=== PATIENT | female | born 1975 ===

== ENCOUNTER 2017-05-17 20:26 | Inpatient (IN) | payer OTHER ==
[2017-05-17] MEDS ORDERED: Sodium Chloride 0.9% 1,000 ML IV ONE (20:56)
[2017-05-17 21:33] LABS: BASO % 0.4 % (0.0-2.0); EOS # 0.1 K/uL (0.0-0.7); HEMATOCRIT 36.4 % (34.0-47.0); LYMPH # 2.2 K/uL (1.0-4.3); LYMPH % 31.7 % (20.0-40.0); MEAN CELL VOLUME 85.6 fL (81.0-99.0); MEAN CORPUSCULAR HEMOGLOBIN 27.5 pg (27.0-31.0); MEAN CORPUSCULAR HGB CONC 32.1 g/dL (33.0-37.0); MEAN PLATELET VOLUME 8.7 fL (7.2-11.7); MONO # 0.7 K/uL (0.0-0.8); RED CELL DISTRIBUTION WIDTH 15.8 % (11.5-14.5)
[2017-05-17 21:42] LABS: CHLORIDE 106 mmol/L (98-107); RBC URINE 169 /hpf (0-3); SODIUM 141 mmol/L (132-148); URINE BACTERIA RARE (<OCC); URINE BILIRUBIN NEGATIVE (NEGATIVE); URINE BLOOD 3+ (NEGATIVE); URINE COLOR Amber (YELLOW); URINE GLUCOSE (UA) NORMAL (Normal); URINE KETONE NEGATIVE (NEGATIVE); URINE LEUKOCYTE ESTERASE 3+ Leu/uL (Negative); URINE PROTEIN 2+ mg/dL (NEGATIVE); WBC URINE 104 /hpf (0-5)
[2017-05-17 21:44] LABS: GFR AFRICAN-AMERICAN > 60
[2017-05-17 21:45] LABS: ALB/GLOB RATIO 0.7 (1.0-2.1); ALKALINE PHOSPHATASE 75 U/L (38-126); ALT/SGPT 79 U/L (9-52); AST/SGOT 106 U/L (14-36); BILIRUBIN,TOTAL 0.5 mg/dL (0.2-1.3); BLOOD UREA NITROGEN 18 mg/dL (7-17); CALCIUM 8.6 mg/dl (8.6-10.4); CARBON DIOXIDE 23 mmol/L (22-30); GLUCOSE,RANDOM 88 mg/dL (65-105); TOTAL PROTEIN 7.4 g/dL (6.3-8.3)
[2017-05-17] MEDS ORDERED: Sodium Chloride 0.9% 1,000 ML ONE (21:58)
[2017-05-17] MEDS ORDERED: Morphine 4 MG/ML VIAL ONE (21:58)
[2017-05-17] MEDS ORDERED: DiphenhydrAMINE 50 mg/ml Inj IVP STA (21:59)
[2017-05-17] MEDS ORDERED: DiphenhydrAMINE 50 mg/ml Inj ONE (22:01)
[2017-05-17] MEDS ORDERED: Ciprofloxacin 400mg/200ml D5W 400 MG/200 ML BAG IVPB STA (22:20)
[2017-05-17] MEDS ORDERED: Magnesium Hydroxide Susp 30 ml UD PO PRN (22:45)
--- NOTE | 2017-05-17 23:04 | C.PDOC ---
History Of Present Illness Pt has a suprapubic catheter. Pt c/o pain/irritation and foul smelling urine and discharge from around the catheter site. Time Seen by Provider: 05/17/17 20:47 Chief Complaint (Nursing): Female Genitourinary History Per: Patient Onset/Duration Of Symptoms: Days (few) Current Symptoms Are (Timing): Worse Severity: Moderate Quality Of Discomfort: "Pain" Associated Symptoms: Urinary Symptoms Alleviating Factors: None Additional History Per: Prior Records Past Medical History Reviewed: Historical Data, Nursing Documentation, Vital Signs Vital Signs: Last Vital Signs Temp 98.7 F 05/17/17 20:35 Pulse 82 05/17/17 20:35 Resp 16 05/17/17 20:35 BP 117/79 05/17/17 22:00 Pulse Ox 98 05/17/17 20:35 - Medical History PMH: Depression Other PMH: 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 Surgical History: Back Surgery Other Surgeries: Suprapubic catheter Family History: States: Unknown Family Hx - Social History Hx Alcohol Use: No Hx Substance Use: No - Immunization History Hx Tetanus Toxoid Vaccination: No Hx Influenza Vaccination: No Hx Pneumococcal Vaccination: No Review Of Systems Except As Marked, All Systems Reviewed And Found Negative. Constitutional: Negative for: Weakness Cardiovascular: Negative for: Chest Pain Respiratory: Negative for: Shortness of Breath Gastrointestinal: Negative for: Vomiting Musculoskeletal: Negative for: Neck Pain, Back Pain Skin: Positive for: Rash Physical Exam - Physical Exam Appears: No Acute Distress, Chronically Ill Skin: Warm, Dry Head: Atraumatic, Normacephalic Eye(s): bilateral: PERRL, EOMI Neck: Normal ROM, Supple Cardiovascular: Rhythm Regular Respiratory: Normal Breath Sounds, No Accessory Muscle Use Gastrointestinal/Abdominal: Soft, Other (suprapubic catheter in place but with surrounding erythema) Back: No CVA Tenderness Extremity: Normal ROM Neurological/Psych: Oriented x3, No Normal Motor (b/l LE weakness (baseline)) ED Course And Treatment - Laboratory Results Result Diagrams: 05/17/17 21:29 05/17/17 21:29 Lab Interpretation: Abnormal Interpretation Of Abnormal: UTI Urine POC: Negative O2 Sat by Pulse Oximetry: 98 Pulse Ox Interpretation: Normal - Physician Consult Information Physician Contacted: Sang Molina (Urology) Outcome Of Conversation: He will change the suprapubic catheter in the hospital. Progress - Interventions Interventions:: Observation, Intravenous fluid - Medications Administered Intravenous: Antihistamine (H-1), Opiate, Other (Abx) - Data Reviewed Data Reviewed: Lab, Old records - Patient Status Patient status: Partially improved - Continuity of Care Discussed patient case with:: Patient, ED Nurse, On-call PMD-pt unassigned Discussed pt. case with technical sales consultant/specialty: Urology - Patient Plan Patient Plan: Admission Disposition Discussed With : Senait Carreno Comment: He accepted pt on his service and gave admitting orders to the nurse. Doctor Will See Patient In The: Hospital Counseled Patient/Family Regarding: Studies Performed, Diagnosis - Disposition Disposition: HOSPITALIZED Disposition Time: 23:00 Condition: FAIR - Clinical Impression Clinical Impression: Complicated urinary tract infection, Chronic suprapubic catheter
[2017-05-17] MEDS ORDERED: Ciprofloxacin 400mg/200ml D5W 400 MG/200 ML BAG IVPB ONE (23:22)
[2017-05-18] MEDS: TIZANIDINE HCL 2 MG PO SCH ×3 (06:02→23:17)
[2017-05-18] MEDS: oxyCODONE 20 mg ER Tab (oxyCONTIN) PO SCH ×3 (06:17→23:21)
[2017-05-18 08:07] LABS: BASO % 0.4 % (0.0-2.0); EOS # 0.1 K/uL (0.0-0.7); EOS % 2.6 % (0.0-4.0); HEMATOCRIT 33.1 % (34.0-47.0); LYMPH # 1.6 K/uL (1.0-4.3); LYMPH % 34.8 % (20.0-40.0); MEAN CELL VOLUME 85.6 fL (81.0-99.0); MEAN CORPUSCULAR HEMOGLOBIN 27.2 pg (27.0-31.0); MEAN CORPUSCULAR HGB CONC 31.8 g/dL (33.0-37.0); MONO # 0.5 K/uL (0.0-0.8); MONO % 10.6 % (0.0-10.0); NRBC % 0.1 % (0.0-2.0); RED CELL DISTRIBUTION WIDTH 16.1 % (11.5-14.5); WHITE BLOOD COUNT 4.7 K/uL (4.8-10.8)
[2017-05-18 09:14] LABS: CHLORIDE 108 mmol/L (98-107); POTASSIUM 3.7 mmol/L (3.6-5.2); SODIUM 140 mmol/L (132-148)
[2017-05-18 09:16] LABS: BILIRUBIN,TOTAL 0.5 mg/dL (0.2-1.3); GFR AFRICAN-AMERICAN > 60
[2017-05-18 09:17] LABS: ALB/GLOB RATIO 0.7 (1.0-2.1); ALKALINE PHOSPHATASE 72 U/L (38-126); ALT/SGPT 77 U/L (9-52); AST/SGOT 111 U/L (14-36); BLOOD UREA NITROGEN 17 mg/dL (7-17); CARBON DIOXIDE 21 mmol/L (22-30); GLUCOSE,RANDOM 115 mg/dL (65-105); TOTAL PROTEIN 6.9 g/dL (6.3-8.3)
[2017-05-18 09:18] LABS: CALCIUM 8.3 mg/dl (8.6-10.4)
[2017-05-18] MEDS: Morphine 15 mg Immediate Release Tab PO PRN ×2 (09:34→15:54)
[2017-05-18] MEDS: Multiple Vitamins Tab PO SCH (09:38)
[2017-05-18] MEDS: Cefepime IV 1 gm in Dextrose 1 GM/50 ML BAG IVPB SCH ×2 (09:39→22:59)
[2017-05-18] MEDS ORDERED: Venlafaxine 75 mg ER Cap PO SCH (10:00)
[2017-05-18] MEDS ORDERED: Levothyroxine 150 MCG TAB PO SCH (10:00)
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
--- NOTE | 2017-05-18 15:40 | CP.PCM.CON ---
History of Present Illness - History of Present Illness History of Present Illness: INFECTIOUS DISEASE CONSULTATION .HPI; 41-YEAR-OLD FEMALE WITH NO SIGNIFICANT PAST MEDICAL HISTORY EXCEPT FOR DEPRESSION AND HISTORY OF BACK SURGERY AND LOWER EXTREMITY PARALYSIS SECONDARY TO CHRONIC OSTEOMYELITIS OF THE SPINE. PATIENT HAS A SUPRAPUBIC CATHETER WHICH REQUIRES CHANGING EVERY MONTH PER PATIENT. PATIENT ADMITS THAT IT WAS LAST CHANGED 2 MONTHS AGO AND SHE IS OVERDUE. NOW COMPLAINS OF EXCRUCIATING PAIN, IRRITATION AND FOUL-SMELLING URINE AND DISCHARGE FROM AROUND THE CATHETER SITE. INFECTIOUS DISEASE CONSULTATION REQUESTED BY PMD,FOR COMPLICATED UTI AND CHANGE OF SUPRAPUBIC CATHETER. NOTED PATIENT IS ON POLYPHARMACY FOR OPIOIDS AND ANALGESICS. PATIENT COMPLAINS OF CHILLS BUT DENIES ANY FEVER. uRINALYSIS ON ADMISSION IS HAZY WITH 3+ URINARY LEUKOCYTES AND 104 WBC'S AND MICROSCOPIC HEMATURIA. pATIENT WAS PLACED ON iv CEFEPIME 1 G EVERY 12 HOURLY AND WAS GIVEN A DOSE OF iv GENTAMICIN 160 MG ORDERED BY ME. pATIENT AWAITING CHANGE OF CATHETER AND URINE CULTURES TO ADJUST ANTIBIOTICS. ALLERGY; PENICILLIN BUT HAS TOLERATED CEFEPIME FOR 2 DAYS WITHOUT ANY RASH. 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 Surgical History: Back Surgery Other Surgeries: Suprapubic catheter Family History: States: Unknown Family Hx - Social History Hx Alcohol Use: No Hx Substance Use: No - Immunization History Hx Tetanus Toxoid Vaccination: No Hx Influenza Vaccination: No Hx Pneumococcal Vaccination: No Review of Systems - Constitutional Constitutional: Chills. absent: Fever - EENT Eyes: absent: Change in Vision Nose/Mouth/Throat: absent: Mouth Lesions, Sore Throat - Cardiovascular Cardiovascular: Chest Pain. absent: Dyspnea - Respiratory Respiratory: absent: Cough - Gastrointestinal Gastrointestinal: Abdominal Pain. absent: Diarrhea, Nausea, Vomiting - Genitourinary Genitourinary: Flank Pain, Hematuria (MICROSCOPIC HEMATURIA), Freq UTI, Hx / Renal Surgery (HISTORY OF SUPRAPUBIC CATHETER WITH CHANGING EVERY MONTHLY,LAST CHANGED 2 MONTHS AGO.) - Psychiatric Psychiatric: Anxiety, Depression, Mood Swings - Hematologic/Lymphatic Hematologic: As Per HPI. absent: Lymphadenopathy Past Patient History - Infectious Disease Hx of Infectious Diseases: None - Past Medical History & Family History Past Medical History?: Yes - Past Social History Smoking Status: Former Smoker - CARDIAC Hx Cardiac Disorders: No - PULMONARY Hx Respiratory Disorders: No - NEUROLOGICAL Hx Neurological Disorder: No - HEENT Hx HEENT Problems: No - RENAL Hx Chronic Kidney Disease: No - ENDOCRINE/METABOLIC Hx Endocrine Disorders: No - HEMATOLOGICAL/ONCOLOGICAL Hx Blood Disorders: No - INTEGUMENTARY Hx Dermatological Problems: No - MUSCULOSKELETAL/RHEUMATOLOGICAL Hx Musculoskeletal Disorders: Yes Hx Back Pain: Yes Hx Falls: No Other/Comment: PARAPLEGIA. - GASTROINTESTINAL Hx Gastrointestinal Disorders: No - GENITOURINARY/GYNECOLOGICAL Hx Genitourinary Disorders: Yes Other/Comment: SUPRAPUBIC CATHETER - PSYCHIATRIC Hx Psychophysiologic Disorder: Yes Hx Depression: Yes Hx Substance Use: No - SURGICAL HISTORY Hx Surgeries: Yes Hx Section: Yes Other/Comment: CYST REMOVAL NECK, HAND AND ABDOMIN. - ANESTHESIA Hx Anesthesia: Yes Hx Anesthesia Reactions: No Hx Malignant Hyperthermia: No Has any member of the family had a problem w/ anesthesia?: No Meds Allergies/Adverse Reactions: Allergies Allergy/AdvReac Type Severity Reaction Status Date / Time divalproex sodium Allergy SWELLING Verified 05/17/17 20:47 [From Depakote] Penicillins Allergy RASH Verified 05/17/17 20:47 tramadol Allergy RASH Verified 05/17/17 20:47 - Medications Medications: Current Medications Acetaminophen (Tylenol 325mg Tab) 325 mg PO DAILY [facility] Last Admin: 05/18/17 09:40 Dose: 325 mg Ascorbic Acid (Vitamin C 500 Mg Tab) 500 mg PO DAILY [facility] Last Admin: 05/18/17 14:54 Dose: 500 mg Baclofen (Lioresal) 10 mg PO TID [facility] Last Admin: 05/18/17 13:40 Dose: 10 mg Docusate Sodium (Colace) 200 mg PO HS [facility] Famotidine (Pepcid) 20 mg PO DAILY [facility] Last Admin: 05/18/17 09:39 Dose: 20 mg Fentanyl (Duragesic) 1 patch TD Q72 [facility] Gabapentin (Neurontin) 400 mg PO QID [facility] Last Admin: 05/18/17 13:39 Dose: 400 mg Home Med (Tizanidine Hcl [Zanaflex]) 2 mg PO Q8 [facility] Last Admin: 05/18/17 14:55 Dose: Not Given Cefepime HCl (Maxipime Iv 1 Gm Premix) 1 gm in 50 mls @ 100 mls/hr IVPB Q12H [facility] Last Admin: 05/18/17 09:39 Dose: 100 mls/hr Gentamicin Sulfate 160 mg/ (Sodium Chloride) 104 mls @ 100 mls/hr IVPB ONCE ONE Stop: 05/18/17 18:02 Lactulose (Enulose) 20 gm PO TID [facility] Last Admin: 05/18/17 13:39 Dose: Not Given Levothyroxine Sodium (Synthroid) 150 mcg PO DAILY@0630 [facility] Magnesium Hydroxide (Milk Of Magnesia) 30 ml PO DAILY PRN PRN Reason: Constipation Morphine Sulfate (Morphine Immediate Release Tab) 30 mg PO Q4 PRN PRN Reason: Pain, moderate (4-7) Last Admin: 05/18/17 09:34 Dose: 30 mg Multivitamins (Hexavitamin) 1 tab PO DAILY [facility] Last Admin: 05/18/17 09:38 Dose: 1 tab Oxybutynin Chloride (Ditropan Tab) 5 mg PO TID [facility] Last Admin: 05/18/17 13:39 Dose: 5 mg Oxycodone HCl (Oxycontin Extended Release Tab) 20 mg PO Q8 [facility] Last Admin: 05/18/17 13:40 Dose: 20 mg Pneumococcal Polyvalent Vaccine (Pneumovax 23 Vaccine) 0.5 ml IM .ONCE ONE Stop: 05/20/17 10:01 Pregabalin (Lyrica) 50 mg PO Q12 [facility] Last Admin: 05/18/17 09:38 Dose: 50 mg Rivaroxaban (Xarelto) 10 mg PO DAILY [facility] Last Admin: 05/18/17 09:40 Dose: 10 mg Topiramate (Topamax) 25 mg PO DAILY [facility] Last Admin: 05/18/17 14:54 Dose: 25 mg Venlafaxine HCl (Effexor Xr) 300 mg PO DAILY [facility] Last Admin: 05/18/17 09:38 Dose: 300 mg Zolpidem Tartrate (Ambien) 5 mg PO HS [facility] Physical Exam - Constitutional Appears: No Acute Distress - Head Exam Head Exam: NORMAL INSPECTION - Eye Exam Eye Exam: EOMI, PERRL. absent: Scleral icterus - ENT Exam ENT Exam: Normal Oropharynx - Neck Exam Neck exam: Positive for: Normal Inspection - Respiratory Exam Respiratory Exam: Clear to Auscultation Bilateral - Cardiovascular Exam Cardiovascular Exam: REGULAR RHYTHM, +S1, +S2 - GI/Abdominal Exam GI & Abdominal Exam: Normal Bowel Sounds, Soft, Tenderness (SUPRAPUBIC AND AROUND THE CATHETER SITE.). absent: Guarding - Extremities Exam Extremities exam: Positive for: pedal pulses present. Negative for: calf tenderness - Neurological Exam Neurological exam: Alert, CN II-XII Intact (PARALYSIS BOTH LOWER EXTREMITIES POST OSTEOMYELITIS SPINE AND BACK SURGERY.), Oriented x3 - Psychiatric Exam Psychiatric exam: Anxious, Depressed - Skin Skin Exam: Normal Color, Warm Results - Vital Signs Recent Vital Signs: Last Vital Signs Temp 98.2 F 05/18/17 08:32 Pulse 69 05/18/17 08:32 Resp 20 05/18/17 08:32 BP 119/85 05/18/17 08:32 Pulse Ox 99 05/18/17 08:32 - Labs Result Diagrams: 05/19/17 07:12 05/19/17 07:12 Labs: Laboratory Results - last 24 hr 05/18/17 05/18/17 07:55 07:55 WBC 4.7 L RBC 3.87 Hgb 10.5 L Hct 33.1 L MCV 85.6 MCH 27.2 MCHC 31.8 L RDW 16.1 H Plt Count 130 MPV 9.0 Neut % (Auto) 51.6 Lymph % (Auto) 34.8 [place]ley % (Auto) 10.6 H Eos % (Auto) 2.6 Baso % (Auto) 0.4 Neut # 2.4 Lymph # 1.6 Weakley # 0.5 Eos # 0.1 Baso # 0.0 Sodium 140 Potassium 3.7 Chloride 108 H Carbon Dioxide 21 L Anion Gap 15 BUN 17 Creatinine 0.7 Est GFR ( Amer) > 60 Est GFR (Non-Af Amer) > 60 Random Glucose 115 H Calcium 8.3 L Total Bilirubin 0.5 AST 111 H ALT 77 H Alkaline Phosphatase 72 Total Protein 6.9 Albumin 2.8 L Globulin 4.1 H Albumin/Globulin Ratio 0.7 L Assessment & Plan (1) Chronic suprapubic catheter Assessment and Plan: patient has a suprapubic catheter in place with tenderness and small amount of drainage around the suprapubic catheter. Status: Acute (2) Complicated urinary tract infection Assessment and Plan: pancultures. Follow-up cultures to adjust antibiotics. Continue IV Maxipime 1 g every 12 hourly. 1 does gentamicin 160 mg 05/18/14 Status: Acute (3) Lower extremity paralysis Assessment and Plan: bilateral lower extremity paralysis .hx off osteomyelitis spine s/p back surgery. Status: Acute
[2017-05-18] MEDS ORDERED: Gentamicin 160 MG in Sodium Chloride 0.9% 100 ML IVPB ONE (17:00)
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
[2017-05-18] MEDS ORDERED: Morphine Monoject Barrel PCA 1mg/ml IV PRN ×2 (20:26→20:56)
[2017-05-18] MEDS ORDERED: MORPHINE IV PRN ×3 (21:15→22:50)
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
[2017-05-19 06:33] LABS: RBC URINE 325 /hpf (0-3); URINE BILIRUBIN NEGATIVE (NEGATIVE); URINE BLOOD 3+ (NEGATIVE); URINE COLOR Yellow (YELLOW); URINE GLUCOSE (UA) NORMAL (Normal); URINE KETONE TRACE mg/dL (NEGATIVE); URINE LEUKOCYTE ESTERASE 3+ Leu/uL (Negative); URINE PROTEIN 2+ mg/dL (NEGATIVE); URINE UROBILINOGEN NORMAL mg/dL (0.2-1.0); WBC URINE 252 /hpf (0-5)
[2017-05-19] MEDS: oxyCODONE 20 mg ER Tab (oxyCONTIN) PO SCH ×2 (06:37→13:51)
[2017-05-19] MEDS: TIZANIDINE HCL 2 MG PO SCH ×2 (06:40→14:00)
[2017-05-19] MEDS: Levothyroxine 150 MCG TAB PO SCH (07:15)
[2017-05-19 07:26] LABS: BASO % 0.5 % (0.0-2.0); EOS # 0.1 K/uL (0.0-0.7); LYMPH # 1.7 K/uL (1.0-4.3); MONO # 0.6 K/uL (0.0-0.8)
[2017-05-19 07:35] LABS: CHLORIDE 109 mmol/L (98-107); SODIUM 137 mmol/L (132-148)
[2017-05-19 07:36] LABS: EOS % 2.5 % (0.0-4.0); HEMATOCRIT 34.4 % (34.0-47.0); LYMPH % 32.9 % (20.0-40.0); MEAN CELL VOLUME 86.1 fL (81.0-99.0); MEAN CORPUSCULAR HEMOGLOBIN 27.5 pg (27.0-31.0); MEAN PLATELET VOLUME 8.7 fL (7.2-11.7); NRBC % 0.1 % (0.0-2.0); RED CELL DISTRIBUTION WIDTH 15.9 % (11.5-14.5); WHITE BLOOD COUNT 5.3 K/uL (4.8-10.8)
[2017-05-19 07:37] LABS: BILIRUBIN,TOTAL 0.5 mg/dL (0.2-1.3); CARBON DIOXIDE 19 mmol/L (22-30); GFR AFRICAN-AMERICAN > 60
[2017-05-19 07:38] LABS: ALB/GLOB RATIO 0.7 (1.0-2.1); AST/SGOT 124 U/L (14-36); BLOOD UREA NITROGEN 17 mg/dL (7-17); GLUCOSE,RANDOM 86 mg/dL (65-105)
[2017-05-19 07:39] LABS: ALKALINE PHOSPHATASE 75 U/L (38-126); ALT/SGPT 85 U/L (9-52); CALCIUM 8.5 mg/dl (8.6-10.4)
[2017-05-19] MEDS: Multiple Vitamins Tab PO SCH (09:42)
[2017-05-19] MEDS: Morphine 15 mg Immediate Release Tab PO PRN (09:54)
[2017-05-19] MEDS: Venlafaxine 150 mg ER Cap PO SCH (09:55)
[2017-05-19] MEDS: Cefepime IV 1 gm in Dextrose 1 GM/50 ML BAG IVPB SCH (11:35)
--- NOTE | 2017-05-19 13:41 | CP.PCM.PN ---
Subjective - Date & Time of Evaluation Date of Evaluation: 05/19/17 Time of Evaluation: 13:40 - Subjective Subjective: FOR REMOVALE OF SUPRAPUBIC CATHER URINE POS E.COLI RES. TO MOST OF AB Objective - Vital Signs/Intake and Output Vital Signs (last 24 hours): Temp Pulse Resp BP Pulse Ox 98.4 F 62 20 120/79 98 05/19/17 08:00 05/19/17 08:00 05/19/17 08:00 05/19/17 08:00 05/19/17 08:00 Intake and Output: 05/19/17 05/19/17 11:59 23:59 Intake Total 250 Output Total 700 Balance -450 - Medications Medications: Current Medications Acetaminophen (Tylenol 325mg Tab) 325 mg PO DAILY [facility] Last Admin: 05/19/17 10:03 Dose: 325 mg Ascorbic Acid (Vitamin C 500 Mg Tab) 500 mg PO DAILY [facility] Last Admin: 05/19/17 10:04 Dose: 500 mg Baclofen (Lioresal) 10 mg PO TID [facility] Last Admin: 05/19/17 09:56 Dose: 10 mg Docusate Sodium (Colace) 200 mg PO HS [facility] Last Admin: 05/18/17 23:15 Dose: 200 mg Famotidine (Pepcid) 20 mg PO DAILY [facility] Last Admin: 05/19/17 09:43 Dose: 20 mg Fentanyl (Duragesic) 1 patch TD Q72 [facility] Gabapentin (Neurontin) 400 mg PO QID [facility] Last Admin: 05/19/17 09:55 Dose: 400 mg Home Med (Tizanidine Hcl [Zanaflex]) 2 mg PO Q8 [facility] Last Admin: 05/19/17 06:40 Dose: Not Given Cefepime HCl (Maxipime Iv 1 Gm Premix) 1 gm in 50 mls @ 100 mls/hr IVPB Q12H [facility] Last Admin: 05/19/17 11:35 Dose: 100 mls/hr Lactulose (Enulose) 20 gm PO TID [facility] Last Admin: 05/19/17 11:34 Dose: Not Given Levothyroxine Sodium (Synthroid) 150 mcg PO DAILY@0630 [facility] Last Admin: 05/19/17 07:15 Dose: 150 mcg Magnesium Hydroxide (Milk Of Magnesia) 30 ml PO DAILY PRN PRN Reason: Constipation Morphine Sulfate (Morphine Immediate Release Tab) 30 mg PO Q4 PRN PRN Reason: Pain, moderate (4-7) Last Admin: 05/19/17 09:54 Dose: 30 mg Morphine Sulfate (Morphine) 1 mg IVP Q1H PRN PRN Reason: Pain, severe (8-10) Last Admin: 05/19/17 11:46 Dose: 1 mg Multivitamins (Hexavitamin) 1 tab PO DAILY [facility] Last Admin: 05/19/17 09:42 Dose: 1 tab Oxybutynin Chloride (Ditropan Tab) 5 mg PO TID [facility] Last Admin: 05/19/17 09:56 Dose: 5 mg Oxycodone HCl (Oxycontin Extended Release Tab) 20 mg PO Q8 [facility] Last Admin: 05/19/17 06:37 Dose: 20 mg Pneumococcal Polyvalent Vaccine (Pneumovax 23 Vaccine) 0.5 ml IM .ONCE ONE Stop: 05/20/17 10:01 Pregabalin (Lyrica) 50 mg PO Q12 [facility] Last Admin: 05/19/17 09:42 Dose: 50 mg Rivaroxaban (Xarelto) 10 mg PO DAILY [facility] Last Admin: 05/19/17 09:56 Dose: 10 mg Topiramate (Topamax) 25 mg PO DAILY [facility] Last Admin: 05/19/17 11:34 Dose: 25 mg Venlafaxine HCl (Effexor Xr) 300 mg PO DAILY [facility] Last Admin: 05/19/17 09:55 Dose: 300 mg Zolpidem Tartrate (Ambien) 5 mg PO HS [facility] Last Admin: 05/18/17 23:15 Dose: 5 mg - Labs Labs: 05/19/17 07:12 05/19/17 07:12
[2017-05-19] MEDS ORDERED: Morphine 4 MG/ML VIAL IV PRN (14:11)
[2017-05-19] MEDS ORDERED: Cefepime 1 GM in Sodium Chloride 0.9% 100 ML IVPB SCH ×2 (16:45→22:00)
--- NOTE | 2017-05-19 18:19 | CP.PCM.PN ---
Subjective - Date & Time of Evaluation Date of Evaluation: 05/19/17 Time of Evaluation: 18:19 - Subjective Subjective: afebrile c/o abdominal pain especially suprapubic and around the suprapubic catheter. Patient states catheter needs to be changed monthly but it has not been changed for the past 2 months. Urine cultures reported positive for multidrug resistant organisms. PATIENT STATES SHE IS ALLERGIC TO PENICILLIN bUT HAS TOLERATED mAXIPIME FOR THE PAST 2 DAYS WITH NO RASH. PATIENT SWITCHED TO MERREM 1 G EVERY 8 HOURLY FOR COVERAGE FOR PROTEUS MIRABILIS/AND ESCHERICHIA COLI. 05/19/17. Objective - Vital Signs/Intake and Output Vital Signs (last 24 hours): Temp Pulse Resp BP Pulse Ox 98.3 F 70 20 110/64 96 05/19/17 17:41 05/19/17 17:41 05/19/17 17:41 05/19/17 17:41 05/19/17 17:41 Intake and Output: 05/19/17 05/19/17 06:59 18:59 Intake Total 250 550 Output Total 700 500 Balance -450 50 - Medications Medications: Current Medications Acetaminophen (Tylenol 325mg Tab) 325 mg PO DAILY [facility] Last Admin: 05/19/17 10:03 Dose: 325 mg Ascorbic Acid (Vitamin C 500 Mg Tab) 500 mg PO DAILY [facility] Last Admin: 05/19/17 10:04 Dose: 500 mg Baclofen (Lioresal) 10 mg PO TID [facility] Last Admin: 05/19/17 13:51 Dose: 10 mg Docusate Sodium (Colace) 200 mg PO HS [facility] Last Admin: 05/18/17 23:15 Dose: 200 mg Famotidine (Pepcid) 20 mg PO DAILY [facility] Last Admin: 05/19/17 09:43 Dose: 20 mg Fentanyl (Duragesic) 1 patch TD Q72 [facility] Gabapentin (Neurontin) 400 mg PO QID [facility] Last Admin: 05/19/17 13:51 Dose: 400 mg Home Med (Tizanidine Hcl [Zanaflex]) 2 mg PO Q8 [facility] Last Admin: 05/19/17 14:00 Dose: Not Given Meropenem 1 gm/ Sodium (Chloride) 100 mls @ 100 mls/hr IVPB Q8 [facility] Lactulose (Enulose) 20 gm PO TID [facility] Last Admin: 05/19/17 13:52 Dose: 20 gm Levothyroxine Sodium (Synthroid) 150 mcg PO DAILY@0630 [facility] Last Admin: 05/19/17 07:15 Dose: 150 mcg Magnesium Hydroxide (Milk Of Magnesia) 30 ml PO DAILY PRN PRN Reason: Constipation Morphine Sulfate (Morphine) 1 mg IVP Q1H PRN PRN Reason: Pain, severe (8-10) Last Admin: 05/19/17 11:46 Dose: 1 mg Morphine Sulfate (Morphine) 4 mg IV Q3 PRN PRN Reason: Pain Multivitamins (Hexavitamin) 1 tab PO DAILY [facility] Last Admin: 05/19/17 09:42 Dose: 1 tab Oxybutynin Chloride (Ditropan Tab) 5 mg PO TID [facility] Last Admin: 05/19/17 13:51 Dose: 5 mg Pneumococcal Polyvalent Vaccine (Pneumovax 23 Vaccine) 0.5 ml IM .ONCE ONE Stop: 05/20/17 10:01 Pregabalin (Lyrica) 50 mg PO Q12 [facility] Last Admin: 05/19/17 09:42 Dose: 50 mg Rivaroxaban (Xarelto) 10 mg PO DAILY [facility] Last Admin: 05/19/17 09:56 Dose: 10 mg Topiramate (Topamax) 25 mg PO DAILY [facility] Last Admin: 05/19/17 11:34 Dose: 25 mg Venlafaxine HCl (Effexor Xr) 300 mg PO DAILY [facility] Last Admin: 05/19/17 09:55 Dose: 300 mg Zolpidem Tartrate (Ambien) 5 mg PO HS [facility] Last Admin: 05/18/17 23:15 Dose: 5 mg - Labs Labs: 05/19/17 07:12 05/19/17 07:12 - Constitutional Appears: No Acute Distress - Head Exam Head Exam: NORMAL INSPECTION - Eye Exam Eye Exam: EOMI, PERRL - ENT Exam ENT Exam: Normal Oropharynx - Neck Exam Neck Exam: Normal Inspection - Respiratory Exam Respiratory Exam: Clear to Ausculation Bilateral - Cardiovascular Exam Cardiovascular Exam: REGULAR RHYTHM, +S1, +S2 - GI/Abdominal Exam GI & Abdominal Exam: Soft (GOOD NIGHT), Tenderness (SUPRAPUBIC AND LOWER ABDOMEN./URINE HAZY AND CLOUDY.) - Extremities Exam Extremities Exam: absent: Calf Tenderness, Pedal Edema - Neurological Exam Neurological Exam: Awake, CN II-XII Intact (PATIENT PARAPLEGIC BELOW THE WAIST.. 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 .pATIENT IS PARALYZED BELOW THE WAIST SECONDARY TO HISTORY OFF OSTEOMYELITIS OF THE SPINE. ON THE CASE. PATIENT FOR CHANGE OF SUPRAPUBIC CATHETER IN A.M. Status: Acute (2) Complicated urinary tract infection Assessment & Plan: URINE CULTURE +VE PROTEUS MIRABILIS/eSCHERICHIA COLI MULTIDRUG RESISTANT ORGANISMS S-MERREM/AMIKACIN /TYGACIL. dc iv mAXIPIME. START iv MERREM 1 G EVERY 8 HOURLY FOR NOW 05/19/17 X 5DAYS. 1 DOES AMIKACIN 1 G DURING PROCEDUREIN OR IN AM PATIENT DID GET A DOSE OF iv GENTAMICIN 160 MG 05/18/17. MAY REPEAT UA/URINE CULTURE POST TREATMENT. NO NEED FOR PICC-LINE ADDED SOURCE OF INFECTION. CONSIDER HEP-lOCK FOR NOW Status: Acute (3) Lower extremity paralysis Status: Acute
[2017-05-19] MEDS: Morphine 4 MG/ML VIAL IV PRN ×2 (18:57→22:23)
[2017-05-19] MEDS: Meropenem 1 GM in Sodium Chloride 0.9% 100 ML IVPB SCH (22:10)
[2017-05-20] MEDS: TIZANIDINE HCL 2 MG PO SCH ×3 (00:15→13:18)
[2017-05-20] MEDS: Morphine 4 MG/ML VIAL IV PRN ×5 (03:18→22:16)
[2017-05-20] MEDS: Meropenem 1 GM in Sodium Chloride 0.9% 100 ML IVPB SCH ×3 (06:31→21:47)
[2017-05-20] MEDS: Levothyroxine 150 MCG TAB PO SCH (07:00)
[2017-05-20] MEDS ORDERED: Pneumococcal 23-Valent Vaccine IM ONE (10:00)
[2017-05-20] MEDS: Venlafaxine 150 mg ER Cap PO SCH (10:15)
[2017-05-20] MEDS: Multiple Vitamins Tab PO SCH (10:15)
--- NOTE | 2017-05-20 13:44 | CP.PCM.PN ---
Subjective - Date & Time of Evaluation Date of Evaluation: 05/20/17 Time of Evaluation: 13:43 - Subjective Subjective: AFEBRILE LESS PAIN FOR CHANGE OF CATHER TODAY IV AB FOR UTI Objective - Vital Signs/Intake and Output Vital Signs (last 24 hours): Temp Pulse Resp BP Pulse Ox 97.7 F 61 20 131/84 99 05/20/17 08:30 05/20/17 08:30 05/20/17 08:30 05/20/17 08:30 05/20/17 08:30 Intake and Output: 05/20/17 05/20/17 11:59 23:59 Output Total 500 Balance -500 - Medications Medications: Current Medications Acetaminophen (Tylenol 325mg Tab) 325 mg PO DAILY [facility] Last Admin: 05/20/17 10:15 Dose: Not Given Ascorbic Acid (Vitamin C 500 Mg Tab) 500 mg PO DAILY [facility] Last Admin: 05/20/17 10:16 Dose: Not Given Baclofen (Lioresal) 10 mg PO TID [facility] Last Admin: 05/20/17 13:18 Dose: Not Given Docusate Sodium (Colace) 200 mg PO HS [facility] Last Admin: 05/19/17 22:24 Dose: 200 mg Famotidine (Pepcid) 20 mg PO DAILY [facility] Last Admin: 05/20/17 10:14 Dose: Not Given Fentanyl (Duragesic) 1 patch TD Q72 [facility] Gabapentin (Neurontin) 400 mg PO QID [facility] Last Admin: 05/20/17 13:18 Dose: Not Given Home Med (Tizanidine Hcl [Zanaflex]) 2 mg PO Q8 [facility] Last Admin: 05/20/17 13:18 Dose: Not Given Meropenem 1 gm/ Sodium (Chloride) 100 mls @ 100 mls/hr IVPB Q8 [facility] Last Admin: 05/20/17 13:42 Dose: 100 mls/hr Lactulose (Enulose) 20 gm PO TID [facility] Last Admin: 05/20/17 13:18 Dose: Not Given Levothyroxine Sodium (Synthroid) 150 mcg PO DAILY@0630 [facility] Last Admin: 05/20/17 07:00 Dose: 150 mcg Magnesium Hydroxide (Milk Of Magnesia) 30 ml PO DAILY PRN PRN Reason: Constipation Morphine Sulfate (Morphine) 1 mg IVP Q1H PRN PRN Reason: Pain, severe (8-10) Last Admin: 05/19/17 11:46 Dose: 1 mg Morphine Sulfate (Morphine) 4 mg IV Q3 PRN PRN Reason: Pain Last Admin: 05/20/17 13:19 Dose: 4 mg Multivitamins (Hexavitamin) 1 tab PO DAILY [facility] Last Admin: 05/20/17 10:15 Dose: Not Given Oxybutynin Chloride (Ditropan Tab) 5 mg PO TID [facility] Last Admin: 05/20/17 13:18 Dose: Not Given Pregabalin (Lyrica) 50 mg PO Q12 [facility] Last Admin: 05/20/17 10:15 Dose: Not Given Rivaroxaban (Xarelto) 10 mg PO DAILY [facility] Last Admin: 05/20/17 10:16 Dose: Not Given Topiramate (Topamax) 25 mg PO DAILY [facility] Last Admin: 05/20/17 10:15 Dose: Not Given Venlafaxine HCl (Effexor Xr) 300 mg PO DAILY [facility] Last Admin: 05/20/17 10:15 Dose: Not Given Zolpidem Tartrate (Ambien) 5 mg PO HS [facility] Last Admin: 05/19/17 22:24 Dose: 5 mg - Labs Labs: 05/19/17 07:12 05/19/17 07:12
--- NOTE | 2017-05-20 17:31 | PCM.URO ---
Urology Progress Note - Subjective Abdominal Pain: Yes - Objective Lab Studies: Reviewed Lab Results Last 24 Hours: Laboratory Results - last 24 hr 05/20/17 14:13 Urine HCG, Qual Negative Intake & Output: Intake & Output 05/19/17 05/20/17 05/20/17 18:59 06:59 18:59 Intake Total 550 480 Output Total 500 500 600 Balance 50 -500 -120 Intake: Intake, IV Amount 50 Right Hand 50 Oral 500 480 Output: Urine 500 500 600 Suprapubic 500 500 600 Other: # Bowel Movements 0 Vital Signs: Vital Signs - 24 hr 05/19/17 05/20/17 05/20/17 17:41 00:42 08:30 Temperature 98.3 F 97.9 F 97.7 F Pulse Rate 70 80 61 Respiratory 20 20 20 Rate Blood Pressure 110/64 130/87 131/84 O2 Sat by Pulse 96 99 99 Oximetry 05/20/17 16:00 Temperature 98.2 F Pulse Rate 62 Respiratory 20 Rate Blood Pressure 141/87 O2 Sat by Pulse 100 Oximetry
--- NOTE | 2017-05-20 20:28 | CP.PCM.PN ---
Subjective - Date & Time of Evaluation Date of Evaluation: 05/20/17 Time of Evaluation: 20:27 - Subjective Subjective: afebrile awaiting change of suprapubic catheter today. on IV Merrem 1 g every 8 hourly 1 dose amikacin 1 g during OR.. Objective - Vital Signs/Intake and Output Vital Signs (last 24 hours): Temp Pulse Resp BP Pulse Ox 98.2 F 62 20 141/87 100 05/20/17 16:00 05/20/17 16:00 05/20/17 16:00 05/20/17 16:00 05/20/17 16:00 Intake and Output: 05/20/17 05/21/17 18:59 06:59 Intake Total 480 Output Total 600 Balance -120 - Medications Medications: Current Medications Acetaminophen (Tylenol 325mg Tab) 325 mg PO DAILY [facility] Last Admin: 05/20/17 10:15 Dose: Not Given Ascorbic Acid (Vitamin C 500 Mg Tab) 500 mg PO DAILY [facility] Last Admin: 05/20/17 10:16 Dose: Not Given Baclofen (Lioresal) 10 mg PO TID [facility] Last Admin: 05/20/17 17:44 Dose: 10 mg Diazepam (Valium) 5 mg PO DAILY [facility] Last Admin: 05/20/17 18:12 Dose: 5 mg Docusate Sodium (Colace) 200 mg PO HS [facility] Last Admin: 05/19/17 22:24 Dose: 200 mg Famotidine (Pepcid) 20 mg PO DAILY [facility] Last Admin: 05/20/17 10:14 Dose: Not Given Fentanyl (Duragesic) 1 patch TD Q72 [facility] Last Admin: 05/20/17 18:12 Dose: 1 patch Gabapentin (Neurontin) 400 mg PO QID [facility] Last Admin: 05/20/17 17:44 Dose: 400 mg Home Med (Tizanidine Hcl [Zanaflex]) 2 mg PO Q8 [facility] Last Admin: 05/20/17 13:18 Dose: Not Given Meropenem 1 gm/ Sodium (Chloride) 100 mls @ 100 mls/hr IVPB Q8 [facility] Last Admin: 05/20/17 13:42 Dose: 100 mls/hr Lactulose (Enulose) 20 gm PO TID [facility] Last Admin: 05/20/17 17:45 Dose: 20 gm Levothyroxine Sodium (Synthroid) 150 mcg PO DAILY@0630 [facility] Last Admin: 05/20/17 07:00 Dose: 150 mcg Magnesium Hydroxide (Milk Of Magnesia) 30 ml PO DAILY PRN PRN Reason: Constipation Morphine Sulfate (Morphine) 1 mg IVP Q1H PRN PRN Reason: Pain, moderate (4-7) Morphine Sulfate (Morphine) 4 mg IV Q3 PRN PRN Reason: Pain, severe (8-10) Multivitamins (Hexavitamin) 1 tab PO DAILY [facility] Last Admin: 05/20/17 10:15 Dose: Not Given Oxybutynin Chloride (Ditropan Tab) 5 mg PO TID [facility] Last Admin: 05/20/17 17:44 Dose: 5 mg Pregabalin (Lyrica) 50 mg PO Q12 [facility] Last Admin: 05/20/17 10:15 Dose: Not Given Rivaroxaban (Xarelto) 10 mg PO DAILY [facility] Last Admin: 05/20/17 10:16 Dose: Not Given Topiramate (Topamax) 25 mg PO DAILY [facility] Last Admin: 05/20/17 10:15 Dose: Not Given Venlafaxine HCl (Effexor Xr) 300 mg PO DAILY [facility] Last Admin: 05/20/17 10:15 Dose: Not Given Zolpidem Tartrate (Ambien) 5 mg PO HS [facility] Last Admin: 05/19/17 22:24 Dose: 5 mg - Labs Labs: 05/19/17 07:12 05/19/17 07:12 - Constitutional Appears: No Acute Distress - Eye Exam Eye Exam: EOMI, PERRL - ENT Exam ENT Exam: Normal Oropharynx - Neck Exam Neck Exam: Normal Inspection - Respiratory Exam Respiratory Exam: Clear to Ausculation Bilateral - Cardiovascular Exam Cardiovascular Exam: REGULAR RHYTHM, +S1, +S2 - GI/Abdominal Exam GI & Abdominal Exam: Soft, Tenderness (suprapubic catheter site), Normal Bowel Sounds - Extremities Exam Extremities Exam: absent: Calf Tenderness, Pedal Edema - Neurological Exam Neurological Exam: Alert, Awake, Oriented x3 (paraplegic below the waist.) - Psychiatric Exam Psychiatric exam: Normal Mood - Skin Skin Exam: Normal Color, Warm Assessment and Plan (1) Chronic suprapubic catheter Assessment & Plan: AWAITING CHANGE OF SUPRAPUBIC CATHETER TODAY. Status: Acute (2) Complicated urinary tract infection Assessment & Plan: patient has multidrug-resistant organisms. Continue iv Merrem 1 g every 8 hourly for now-day2, Follow-up repeat urine culture.. Analgesics as per pmd/anesthesiology. Status: Acute (3) Lower extremity paralysis Status: Acute
[2017-05-21 00:28] LABS: RBC URINE 78 /hpf (0-3); URINE BILIRUBIN NEGATIVE (NEGATIVE); URINE BLOOD 1+ (NEGATIVE); URINE COLOR Yellow (YELLOW); URINE GLUCOSE (UA) NORMAL (Normal); URINE KETONE TRACE mg/dL (NEGATIVE); URINE LEUKOCYTE ESTERASE 3+ Leu/uL (Negative); URINE PROTEIN 1+ mg/dL (NEGATIVE); WBC URINE 139 /hpf (0-5)
[2017-05-21] MEDS: Morphine 4 MG/ML VIAL IV PRN ×8 (01:21→22:28)
[2017-05-21] MEDS: Meropenem 1 GM in Sodium Chloride 0.9% 100 ML IVPB SCH ×3 (06:03→22:29)
[2017-05-21] MEDS: Levothyroxine 150 MCG TAB PO SCH (06:06)
[2017-05-21] MEDS: TIZANIDINE HCL 2 MG PO SCH ×3 (06:07→22:29)
[2017-05-21] MEDS: Venlafaxine 150 mg ER Cap PO SCH (09:24)
[2017-05-21] MEDS: Multiple Vitamins Tab PO SCH (09:24)
--- NOTE | 2017-05-21 12:33 | PCM.URO ---
Urology Progress Note - General General: No Complaints, Tolerating Diet - Subjective Abdominal Pain: Yes Flank Pain: Yes Voiding Well: No Dsypnea: No Chest Pain: No Fever & Chills: No - Objective Lab Results Last 24 Hours: Laboratory Results - last 24 hr 05/20/17 05/21/17 14:13 00:08 Urine Color Yellow Urine Clarity Hazy Urine pH 6.0 Ur Specific [place] 1.026 Urine Protein 1+ H Urine Glucose (UA) Normal Urine Ketones Trace Urine Blood 1+ H Urine Nitrate Negative Urine Bilirubin Negative Urine Urobilinogen 4.0 H Ur Leukocyte Esterase 3+ H Urine WBC (Auto) 139 H Urine RBC (Auto) 78 H Ur Squamous Epith Cells 1 Urine HCG, Qual Negative Intake & Output: Intake & Output 05/20/17 05/21/17 05/21/17 18:59 06:59 18:59 Intake Total 480 100 Output Total 600 300 Balance -120 -200 Intake: Intake, IV Amount 100 Left Forearm 100 Oral 480 Output: Urine 600 300 Suprapubic 600 300 Other: # Bowel Movements 0 Vital Signs: Vital Signs - 24 hr 05/20/17 05/20/17 05/21/17 16:00 23:56 08:00 Temperature 98.2 F 98 F 97.6 F Pulse Rate 62 72 57 L Respiratory 20 18 18 Rate Blood Pressure 141/87 104/58 L 99/62 L O2 Sat by Pulse 100 99 98 Oximetry - Physical Exam Abdominal Exam: Soft, Non-Tender, Non-Distended Back: No CVA Tenderness Urinary Catheter Draining Well: Yes (cystostomy tube) Urine Color: Clear, Yellow - Plan Catheter Care: Yes Additional Information: Imp: neurogenic bladder'. UTI. Plan: Antibiotic rx. cystostomy tube in place. Further w/u and rx t/f - Date & Time of Note Date: 05/21/17 Time: 11:15
--- NOTE | 2017-05-21 13:38 | CP.PCM.PN ---
Subjective - Date & Time of Evaluation Date of Evaluation: 05/21/17 Time of Evaluation: 13:38 - Subjective Subjective: AFEBRILE LESS PAIN FOR CHANGE OF CATHER IV AB FOR UTI Objective - Vital Signs/Intake and Output Vital Signs (last 24 hours): Temp Pulse Resp BP Pulse Ox 97.6 F 57 L 18 99/62 L 98 05/21/17 08:00 05/21/17 08:00 05/21/17 08:00 05/21/17 08:00 05/21/17 08:00 Intake and Output: 05/21/17 05/21/17 11:59 23:59 Intake Total 240 Balance 240 - Medications Medications: Current Medications Acetaminophen (Tylenol 325mg Tab) 325 mg PO DAILY [facility] Last Admin: 05/21/17 10:35 Dose: Not Given Ascorbic Acid (Vitamin C 500 Mg Tab) 500 mg PO DAILY [facility] Last Admin: 05/21/17 09:30 Dose: 500 mg Baclofen (Lioresal) 10 mg PO TID [facility] Last Admin: 05/21/17 09:24 Dose: 10 mg Diazepam (Valium) 5 mg PO DAILY [facility] Last Admin: 05/21/17 09:32 Dose: 5 mg Docusate Sodium (Colace) 200 mg PO HS [facility] Last Admin: 05/20/17 21:46 Dose: 200 mg Famotidine (Pepcid) 20 mg PO DAILY [facility] Last Admin: 05/21/17 09:24 Dose: 20 mg Fentanyl (Duragesic) 1 patch TD Q72 [facility] Last Admin: 05/20/17 18:12 Dose: 1 patch Gabapentin (Neurontin) 400 mg PO QID [facility] Last Admin: 05/21/17 09:24 Dose: 400 mg Home Med (Tizanidine Hcl [Zanaflex]) 2 mg PO Q8 [facility] Last Admin: 05/21/17 13:19 Dose: Not Given Meropenem 1 gm/ Sodium (Chloride) 100 mls @ 100 mls/hr IVPB Q8 [facility] Last Admin: 05/21/17 06:03 Dose: 100 mls/hr Lactulose (Enulose) 20 gm PO TID [facility] Last Admin: 05/21/17 13:17 Dose: Not Given Levothyroxine Sodium (Synthroid) 150 mcg PO DAILY@0630 [facility] Last Admin: 05/21/17 06:06 Dose: 150 mcg Magnesium Hydroxide (Milk Of Magnesia) 30 ml PO DAILY PRN PRN Reason: Constipation Morphine Sulfate (Morphine) 1 mg IVP Q1H PRN PRN Reason: Pain, moderate (4-7) Morphine Sulfate (Morphine) 4 mg IV Q3 PRN PRN Reason: Pain, severe (8-10) Last Admin: 05/21/17 10:34 Dose: 4 mg Multivitamins (Hexavitamin) 1 tab PO DAILY [facility] Last Admin: 05/21/17 09:24 Dose: 1 tab Oxybutynin Chloride (Ditropan Tab) 5 mg PO TID [facility] Last Admin: 05/21/17 09:24 Dose: 5 mg Pregabalin (Lyrica) 50 mg PO Q12 [facility] Last Admin: 05/21/17 09:24 Dose: 50 mg Rivaroxaban (Xarelto) 10 mg PO DAILY [facility] Last Admin: 05/21/17 09:30 Dose: 10 mg Topiramate (Topamax) 25 mg PO DAILY [facility] Last Admin: 05/21/17 09:24 Dose: 25 mg Venlafaxine HCl (Effexor Xr) 300 mg PO DAILY [facility] Last Admin: 05/21/17 09:24 Dose: 300 mg Zolpidem Tartrate (Ambien) 5 mg PO HS [facility] Last Admin: 05/20/17 21:46 Dose: 5 mg - Labs Labs: 05/19/17 07:12 05/19/17 07:12
--- NOTE | 2017-05-21 13:52 | CP.PCM.PN ---
Subjective - Date & Time of Evaluation Date of Evaluation: 05/21/17 Time of Evaluation: 13:52 - Subjective Subjective: afebrile awaiting change of suprapubic catheter on IV Merrem 1 g every 8 hourly FOR UTI 1 dose amikacin 1 g during OR.. Objective - Vital Signs/Intake and Output Vital Signs (last 24 hours): Temp Pulse Resp BP Pulse Ox 97.6 F 57 L 18 99/62 L 98 05/21/17 08:00 05/21/17 08:00 05/21/17 08:00 05/21/17 08:00 05/21/17 08:00 Intake and Output: 05/21/17 05/21/17 06:59 18:59 Intake Total 100 240 Output Total 300 Balance -200 240 - Medications Medications: Current Medications Acetaminophen (Tylenol 325mg Tab) 325 mg PO DAILY [facility] Last Admin: 05/21/17 10:35 Dose: Not Given Ascorbic Acid (Vitamin C 500 Mg Tab) 500 mg PO DAILY [facility] Last Admin: 05/21/17 09:30 Dose: 500 mg Baclofen (Lioresal) 10 mg PO TID [facility] Last Admin: 05/21/17 09:24 Dose: 10 mg Diazepam (Valium) 5 mg PO DAILY [facility] Last Admin: 05/21/17 09:32 Dose: 5 mg Docusate Sodium (Colace) 200 mg PO HS [facility] Last Admin: 05/20/17 21:46 Dose: 200 mg Famotidine (Pepcid) 20 mg PO DAILY [facility] Last Admin: 05/21/17 09:24 Dose: 20 mg Fentanyl (Duragesic) 1 patch TD Q72 [facility] Last Admin: 05/20/17 18:12 Dose: 1 patch Gabapentin (Neurontin) 400 mg PO QID [facility] Last Admin: 05/21/17 09:24 Dose: 400 mg Home Med (Tizanidine Hcl [Zanaflex]) 2 mg PO Q8 [facility] Last Admin: 05/21/17 13:19 Dose: Not Given Meropenem 1 gm/ Sodium (Chloride) 100 mls @ 100 mls/hr IVPB Q8 [facility] Last Admin: 05/21/17 06:03 Dose: 100 mls/hr Lactulose (Enulose) 20 gm PO TID [facility] Last Admin: 05/21/17 13:17 Dose: Not Given Levothyroxine Sodium (Synthroid) 150 mcg PO DAILY@0630 [facility] Last Admin: 05/21/17 06:06 Dose: 150 mcg Magnesium Hydroxide (Milk Of Magnesia) 30 ml PO DAILY PRN PRN Reason: Constipation Morphine Sulfate (Morphine) 1 mg IVP Q1H PRN PRN Reason: Pain, moderate (4-7) Morphine Sulfate (Morphine) 4 mg IV Q3 PRN PRN Reason: Pain, severe (8-10) Last Admin: 05/21/17 13:46 Dose: 4 mg Multivitamins (Hexavitamin) 1 tab PO DAILY [facility] Last Admin: 05/21/17 09:24 Dose: 1 tab Oxybutynin Chloride (Ditropan Tab) 5 mg PO TID [facility] Last Admin: 05/21/17 09:24 Dose: 5 mg Pregabalin (Lyrica) 50 mg PO Q12 [facility] Last Admin: 05/21/17 09:24 Dose: 50 mg Rivaroxaban (Xarelto) 10 mg PO DAILY [facility] Last Admin: 05/21/17 09:30 Dose: 10 mg Topiramate (Topamax) 25 mg PO DAILY [facility] Last Admin: 05/21/17 09:24 Dose: 25 mg Venlafaxine HCl (Effexor Xr) 300 mg PO DAILY [facility] Last Admin: 05/21/17 09:24 Dose: 300 mg Zolpidem Tartrate (Ambien) 5 mg PO HS [facility] Last Admin: 05/20/17 21:46 Dose: 5 mg - Labs Labs: 05/19/17 07:12 05/19/17 07:12 - Constitutional Appears: No Acute Distress - Head Exam Head Exam: NORMAL INSPECTION - Eye Exam Eye Exam: EOMI, PERRL - ENT Exam ENT Exam: Normal Oropharynx - Neck Exam Neck Exam: Normal Inspection - Respiratory Exam Respiratory Exam: Clear to Ausculation Bilateral - Cardiovascular Exam Cardiovascular Exam: REGULAR RHYTHM, +S1, +S2 - GI/Abdominal Exam GI & Abdominal Exam: Soft, Tenderness (SUPRAPUBIC AND AROUND THE CATHETER SITE.) , Normal Bowel Sounds - Extremities Exam Extremities Exam: absent: Calf Tenderness, Pedal Edema - Neurological Exam Neurological Exam: Awake, Oriented x3 - Psychiatric Exam Psychiatric exam: Normal Mood - Skin Skin Exam: Normal Color, Warm Assessment and Plan (1) Chronic suprapubic catheter Assessment & Plan: AWAITING CHANGE OF SUPRAPUBIC CATHETER . Status: Acute (2) Complicated urinary tract infection Assessment & Plan: patient has multidrug-resistant organisms. Continue iv Merrem 1 g every 8 hourly for now- DAY 4 Follow-up repeat urine culture POST CHANGE OF SUPRAPUBIC CATHETER. Status: Acute (3) Lower extremity paralysis Status: Acute
[2017-05-21 16:52] VITALS: RESP 20
[2017-05-21] MEDS: diaZEpam 10 mg/2 ml Inj IVP PRN ×2 (17:21→22:28)
[2017-05-21 19:10] LABS: RBC URINE 40 /hpf (0-3); URINE BILIRUBIN NEGATIVE (NEGATIVE); URINE BLOOD 2+ (NEGATIVE); URINE COLOR Yellow (YELLOW); URINE GLUCOSE (UA) NORMAL (Normal); URINE KETONE NEGATIVE (NEGATIVE); URINE LEUKOCYTE ESTERASE 3+ Leu/uL (Negative); URINE PROTEIN 1+ mg/dL (NEGATIVE); WBC URINE 74 /hpf (0-5)
[2017-05-22] MEDS: Morphine 4 MG/ML VIAL IV PRN ×5 (01:41→22:16)
[2017-05-22] MEDS ORDERED: diaZEpam 10 mg/2 ml Inj IVP ONE (01:51)
[2017-05-22] MEDS: diaZEpam 10 mg/2 ml Inj IVP PRN ×4 (05:22→22:15)
[2017-05-22] MEDS: Meropenem 1 GM in Sodium Chloride 0.9% 100 ML IVPB SCH ×2 (05:24→14:10)
[2017-05-22] MEDS: TIZANIDINE HCL 2 MG PO SCH ×3 (05:28→22:18)
[2017-05-22] MEDS: Levothyroxine 150 MCG TAB PO SCH (05:30)
[2017-05-22] MEDS ORDERED: Propofol 10 mg/ml Inj (20 ML) ONE ×2 (07:26→08:46)
[2017-05-22] MEDS ORDERED: Midazolam 2 MG/2 ML VIAL ONE (07:26)
[2017-05-22] MEDS ORDERED: Lidocaine Hydrochloride 5 ML INJ ONE (07:26)
[2017-05-22] MEDS ORDERED: Iohexol 240 200 ML IJ ONE (07:29)
[2017-05-22] MEDS ORDERED: Lidocaine 2% Jelly (Uro-Jet) ONE (07:29)
[2017-05-22] MEDS ORDERED: Iohexol 240 (50 ml) ONE (07:29)
[2017-05-22] MEDS ORDERED: Lactated Ringer's 1,000 ML IV ONE (08:35)
[2017-05-22] MEDS ORDERED: HYDROmorphone 0.5 mg/0.5 ml ISec ONE ×4 (09:18→10:00)
[2017-05-22] MEDS: HYDROmorphone 0.5 mg/0.5 ml ISec IVP PRN ×2 (09:20→09:27)
[2017-05-22] MEDS: Venlafaxine 150 mg ER Cap PO SCH (12:06)
[2017-05-22] MEDS: Multiple Vitamins Tab PO SCH (12:06)
[2017-05-22] MEDS ORDERED: Sodium Chloride 0.45% 1,000 ML IV SCH (13:00)
--- NOTE | 2017-05-22 13:41 | RAD ---
HISTORY: Urinary incontinence COMPARISON: None available. FINDINGS: Examination limited by habitus and patient obliquity. BOWEL: Severe constipation. Nonspecific bowel gas pattern without evidence to suggest obstruction. BONES: Osseous demineralization. Degenerative changes. Partially imaged sclerosis involving the bilateral acetabula. OTHER FINDINGS: None. IMPRESSION: Severe constipation.
--- NOTE | 2017-05-22 14:09 | CP.PCM.PN ---
Subjective - Date & Time of Evaluation Date of Evaluation: 05/22/17 Time of Evaluation: 14:07 - Subjective Subjective: afebrile wants narcotics every hour SUPRAPUBIC CATHER EXCHANGED WILL D/W ID TO SEND PT BACK TO [place] TODAY Objective - Vital Signs/Intake and Output Vital Signs (last 24 hours): Temp Pulse Resp BP Pulse Ox 97.4 F L 58 L 20 117/75 99 05/22/17 10:56 05/22/17 10:56 05/22/17 10:56 05/22/17 10:56 05/22/17 10:56 Intake and Output: 05/22/17 05/22/17 11:59 23:59 Output Total 200 Balance -200 - Medications Medications: Current Medications Acetaminophen (Tylenol 325mg Tab) 325 mg PO DAILY [facility] Last Admin: 05/22/17 12:11 Dose: Not Given Ascorbic Acid (Vitamin C 500 Mg Tab) 500 mg PO DAILY [facility] Last Admin: 05/22/17 12:06 Dose: 500 mg Baclofen (Lioresal) 10 mg PO TID [facility] Last Admin: 05/22/17 10:49 Dose: Not Given Diazepam (Valium) 5 mg IVP Q6H PRN PRN Reason: Restlessness Last Admin: 05/22/17 12:10 Dose: 5 mg Docusate Sodium (Colace) 200 mg PO HS [facility] Last Admin: 05/21/17 22:28 Dose: 200 mg Famotidine (Pepcid) 20 mg PO DAILY [facility] Last Admin: 05/22/17 12:06 Dose: 20 mg Fentanyl (Duragesic) 1 patch TD Q72 [facility] Last Admin: 05/20/17 18:12 Dose: 1 patch Gabapentin (Neurontin) 400 mg PO QID [facility] Last Admin: 05/22/17 10:49 Dose: Not Given Home Med (Tizanidine Hcl [Zanaflex]) 2 mg PO Q8 [facility] Last Admin: 05/22/17 05:28 Dose: Not Given Meropenem 1 gm/ Sodium (Chloride) 100 mls @ 100 mls/hr IVPB Q8 [facility] Last Admin: 05/22/17 05:24 Dose: 100 mls/hr Lactulose (Enulose) 20 gm PO TID [facility] Last Admin: 05/22/17 13:07 Dose: Not Given Levothyroxine Sodium (Synthroid) 150 mcg PO DAILY@0630 [facility] Last Admin: 05/22/17 05:30 Dose: 150 mcg Magnesium Hydroxide (Milk Of Magnesia) 30 ml PO DAILY PRN PRN Reason: Constipation Morphine Sulfate (Morphine) 1 mg IVP Q1H PRN PRN Reason: Pain, moderate (4-7) Last Admin: 05/22/17 12:48 Dose: 1 mg Morphine Sulfate (Morphine) 4 mg IV Q3 PRN PRN Reason: Pain, severe (8-10) Last Admin: 05/22/17 05:18 Dose: 4 mg Multivitamins (Hexavitamin) 1 tab PO DAILY [facility] Last Admin: 05/22/17 12:06 Dose: 1 tab Nicotine (Nicoderm Cq) 1 patch TD DAILY [facility] Last Admin: 05/22/17 12:06 Dose: 1 patch Oxybutynin Chloride (Ditropan Tab) 5 mg PO TID [facility] Last Admin: 05/22/17 10:48 Dose: Not Given Pregabalin (Lyrica) 50 mg PO Q12 [facility] Last Admin: 05/22/17 12:06 Dose: 50 mg Rivaroxaban (Xarelto) 10 mg PO DAILY [facility] Last Admin: 05/22/17 12:06 Dose: 10 mg Topiramate (Topamax) 25 mg PO DAILY [facility] Last Admin: 05/22/17 12:06 Dose: 25 mg Venlafaxine HCl (Effexor Xr) 300 mg PO DAILY [facility] Last Admin: 05/22/17 12:06 Dose: 300 mg Zolpidem Tartrate (Ambien) 5 mg PO HS [facility] Last Admin: 05/21/17 22:28 Dose: 5 mg - Labs Labs: 05/19/17 07:12 05/19/17 07:12
--- NOTE | 2017-05-22 14:19 | RAD ---
PROCEDURE: HISTORY: Incontinence COMPARISON: None TECHNIQUE: Total fluoroscopic time utilized during the procedure: 7.9 seconds. Total dose 0.799 mGy cm squared FINDINGS: Submitted images from the current procedure: 7 Please refer to the physician's notes performing the procedure. IMPRESSION: Less than 1 hour fluoroscopic time utilized during performance of the procedure
[2017-05-22 20:19] LABS: RBC URINE 335 /hpf (0-3); URINE BACTERIA OCC (<OCC); URINE BILIRUBIN NEGATIVE (NEGATIVE); URINE BLOOD 3+ (NEGATIVE); URINE COLOR Yellow (YELLOW); URINE GLUCOSE (UA) NORMAL (Normal); URINE KETONE NEGATIVE (NEGATIVE); URINE LEUKOCYTE ESTERASE 1+ Leu/uL (Negative); URINE PROTEIN NEGATIVE (NEGATIVE); WBC URINE 24 /hpf (0-5)
--- NOTE | 2017-05-22 22:21 | CP.PCM.PN ---
Subjective - Date & Time of Evaluation Date of Evaluation: 05/22/17 Time of Evaluation: 22:21 - Subjective Subjective: afebrile s/p suprapubic catheter changed. NO NEW COMPLAINTS Repeat UA urine culture is pending. d/c iv Merrem. Reason got 1 dose of amikacin 1 g today postoperatively. 05/22/17 Start IV amikacin 500 mg q 24hrly x 2days post op. 05/23/17 ,05/23/17. Okay to transfer to correction today. Follow-up urine cultures. Objective - Vital Signs/Intake and Output Vital Signs (last 24 hours): Temp Pulse Resp BP Pulse Ox 98.2 F 72 20 113/71 100 05/22/17 16:03 05/22/17 16:03 05/22/17 16:03 05/22/17 16:03 05/22/17 16:03 Intake and Output: 05/22/17 05/23/17 18:59 06:59 Intake Total 530 Output Total 650 Balance -120 - Medications Medications: Current Medications Acetaminophen (Tylenol 325mg Tab) 325 mg PO DAILY [facility] Last Admin: 05/22/17 12:11 Dose: Not Given Ascorbic Acid (Vitamin C 500 Mg Tab) 500 mg PO DAILY [facility] Last Admin: 05/22/17 12:06 Dose: 500 mg Baclofen (Lioresal) 10 mg PO TID [facility] Last Admin: 05/22/17 17:31 Dose: 10 mg Diazepam (Valium) 5 mg IVP Q6H PRN PRN Reason: Restlessness Last Admin: 05/22/17 22:15 Dose: 5 mg Docusate Sodium (Colace) 200 mg PO HS [facility] Last Admin: 05/22/17 22:15 Dose: 200 mg Famotidine (Pepcid) 20 mg PO DAILY [facility] Last Admin: 05/22/17 12:06 Dose: 20 mg Fentanyl (Duragesic) 1 patch TD Q72 [facility] Last Admin: 05/20/17 18:12 Dose: 1 patch Gabapentin (Neurontin) 400 mg PO QID [facility] Last Admin: 05/22/17 22:18 Dose: Not Given Home Med (Tizanidine Hcl [Zanaflex]) 2 mg PO Q8 [facility] Last Admin: 05/22/17 22:18 Dose: Not Given Lactulose (Enulose) 20 gm PO TID [facility] Last Admin: 05/22/17 17:31 Dose: 20 gm Levothyroxine Sodium (Synthroid) 150 mcg PO DAILY@0630 [facility] Last Admin: 05/22/17 05:30 Dose: 150 mcg Magnesium Hydroxide (Milk Of Magnesia) 30 ml PO DAILY PRN PRN Reason: Constipation Morphine Sulfate (Morphine) 1 mg IVP Q1H PRN PRN Reason: Pain, moderate (4-7) Last Admin: 05/22/17 12:48 Dose: 1 mg Morphine Sulfate (Morphine) 4 mg IV Q3 PRN PRN Reason: Pain, severe (8-10) Last Admin: 05/22/17 22:16 Dose: 4 mg Multivitamins (Hexavitamin) 1 tab PO DAILY [facility] Last Admin: 05/22/17 12:06 Dose: 1 tab Nicotine (Nicoderm Cq) 1 patch TD DAILY [facility] Last Admin: 05/22/17 12:06 Dose: 1 patch Oxybutynin Chloride (Ditropan Tab) 5 mg PO TID [facility] Last Admin: 05/22/17 17:31 Dose: 5 mg Pregabalin (Lyrica) 50 mg PO Q12 [facility] Last Admin: 05/22/17 22:15 Dose: 50 mg Rivaroxaban (Xarelto) 10 mg PO DAILY [facility] Last Admin: 05/22/17 12:06 Dose: 10 mg Topiramate (Topamax) 25 mg PO DAILY [facility] Last Admin: 05/22/17 12:06 Dose: 25 mg Venlafaxine HCl (Effexor Xr) 300 mg PO DAILY [facility] Last Admin: 05/22/17 12:06 Dose: 300 mg Zolpidem Tartrate (Ambien) 5 mg PO HS [facility] Last Admin: 05/22/17 22:17 Dose: 5 mg - Labs Labs: 05/19/17 07:12 05/19/17 07:12 - Constitutional Appears: No Acute Distress - Head Exam Head Exam: NORMAL INSPECTION - Eye Exam Eye Exam: EOMI, PERRL - ENT Exam ENT Exam: Mucous Membranes Moist - Neck Exam Neck Exam: Normal Inspection - Respiratory Exam Respiratory Exam: Clear to Ausculation Bilateral - Cardiovascular Exam Cardiovascular Exam: REGULAR RHYTHM, +S1, +S2 - GI/Abdominal Exam GI & Abdominal Exam: Soft, Normal Bowel Sounds (SUPRAPUBIC CATHETER IN PLACE.) - Extremities Exam Extremities Exam: absent: Calf Tenderness - Neurological Exam Neurological Exam: Awake - Psychiatric Exam Psychiatric exam: Normal Mood - Skin Skin Exam: Normal Color, Warm Assessment and Plan (1) Chronic suprapubic catheter Assessment & Plan: S/P CHANGE OF SUPRAPUBIC CATHETER TODAY 05/22/17. Status: Acute (2) Complicated urinary tract infection Assessment & Plan: PATIENT HAD pROTEUS MIRABILIS AND eSCHERICHIA COLI IN THE URINE MULTIDRUG-RESISTANT ORGANISMS S -mERREM/AMIKACIN/IMIPENEM. PRESENTLY ON IV MERREM. ALSO GOT 1 DOSE OF AMIKACIN 1 G IN OR DURING PROCEDURE. aNTIBIOTICS ADJUSTED FOR SUBACUTE REHABILITATION. Status: Acute (3) Lower extremity paralysis Status: Acute
[2017-05-23] MEDS: Morphine 4 MG/ML VIAL IV PRN ×5 (01:25→23:54)
[2017-05-23] MEDS: diaZEpam 10 mg/2 ml Inj IVP PRN ×3 (04:35→18:54)
[2017-05-23] MEDS: Levothyroxine 150 MCG TAB PO SCH (06:49)
[2017-05-23] MEDS: TIZANIDINE HCL 2 MG PO SCH ×3 (06:54→21:40)
[2017-05-23] MEDS: Venlafaxine 150 mg ER Cap PO SCH (09:29)
[2017-05-23] MEDS: Multiple Vitamins Tab PO SCH (09:30)
--- NOTE | 2017-05-23 13:41 | CP.PCM.DIS ---
Provider - Provider Date of Admission: 05/17/17 23:04 Attending physician: Senait Carreno MD Time Spent in preparation of Discharge (in minutes): 30 Hospital Course - Lab Results Lab Results: Micro Results 05/20/17 15:30 Urine,Suprapubic Urine Culture - Final Yeast Species 05/22/17 20:05 Urine,Suprapubic Urine Culture - Final No Growth (<1,000 CFU/ML) Most Recent Lab Values WBC 5.3 K/uL (4.8-10.8) 05/19/17 07:12 RBC 4.00 Mil/uL (3.80-5.20) 05/19/17 07:12 Hgb 11.0 g/dL (11.0-16.0) 05/19/17 07:12 Hct 34.4 % (34.0-47.0) 05/19/17 07:12 MCV 86.1 fL (81.0-99.0) 05/19/17 07:12 MCH 27.5 pg (27.0-31.0) 05/19/17 07:12 MCHC 32.0 g/dL (33.0-37.0) L 05/19/17 07:12 RDW 15.9 % (11.5-14.5) H 05/19/17 07:12 Plt Count 113 K/uL (130-400) L 05/19/17 07:12 MPV 8.7 fL (7.2-11.7) 05/19/17 07:12 Neut % (Auto) 52.1 % (50.0-75.0) 05/19/17 07:12 Lymph % (Auto) 32.9 % (20.0-40.0) 05/19/17 07:12 [place] % (Auto) 12.0 % (0.0-10.0) H 05/19/17 07:12 Eos % (Auto) 2.5 % (0.0-4.0) 05/19/17 07:12 Baso % (Auto) 0.5 % (0.0-2.0) 05/19/17 07:12 Neut # 2.8 K/uL (1.8-7.0) 05/19/17 07:12 Lymph # 1.7 K/uL (1.0-4.3) 05/19/17 07:12 [place] # 0.6 K/uL (0.0-0.8) 05/19/17 07:12 Eos # 0.1 K/uL (0.0-0.7) 05/19/17 07:12 Baso # 0.0 K/uL (0.0-0.2) 05/19/17 07:12 Differential Comment 05/19/17 07:12 Sodium 137 mmol/L (132-148) 05/19/17 07:12 Potassium 4.0 mmol/L (3.6-5.2) 05/19/17 07:12 Chloride 109 mmol/L (98-107) H 05/19/17 07:12 Carbon Dioxide 19 mmol/L (22-30) L 05/19/17 07:12 Anion Gap 13 (10-20) 05/19/17 07:12 BUN 17 mg/dL (7-17) 05/19/17 07:12 Creatinine 0.7 MG/DL (0.7-1.2) 05/19/17 07:12 Est GFR ( Amer) > 60 05/19/17 07:12 Est GFR (Non-Af Amer) > 60 05/19/17 07:12 Random Glucose 86 mg/dL (65-105) 05/19/17 07:12 Calcium 8.5 mg/dl (8.6-10.4) L 05/19/17 07:12 Total Bilirubin 0.5 mg/dL (0.2-1.3) 05/19/17 07:12 AST 124 U/L (14-36) H 05/19/17 07:12 ALT 85 U/L (9-52) H 05/19/17 07:12 Alkaline Phosphatase 75 U/L (38-126) 05/19/17 07:12 Total Protein 7.0 g/dL (6.3-8.3) 05/19/17 07:12 Albumin 2.9 g/dL (3.5-5.0) L 05/19/17 07:12 Globulin 4.1 gm/dL (2.2-3.9) H 05/19/17 07:12 Albumin/Globulin Ratio 0.7 (1.0-2.1) L 05/19/17 07:12 Urine Color Yellow (YELLOW) 05/22/17 20:08 Urine Clarity Hazy (Clear) 05/22/17 20:08 Urine pH 6.0 (5.0-8.0) 05/22/17 20:08 Ur Specific [place] 1.015 (1.003-1.030) 05/22/17 20:08 Urine Protein Negative mg/dL (NEGATIVE) 05/22/17 20:08 Urine Glucose (UA) Normal mg/dL (Normal) 05/22/17 20:08 Urine Ketones Negative mg/dL (NEGATIVE) 05/22/17 20:08 Urine Blood 3+ (NEGATIVE) H 05/22/17 20:08 Urine Nitrate Negative (NEGATIVE) 05/22/17 20:08 Urine Bilirubin Negative (NEGATIVE) 05/22/17 20:08 Urine Urobilinogen 4.0 mg/dL (0.2-1.0) H 05/22/17 20:08 Ur Leukocyte Esterase 1+ Elisabet/uL (Negative) H 05/22/17 20:08 Urine WBC (Auto) 24 /hpf (0-5) H 05/22/17 20:08 Urine RBC (Auto) 335 /hpf (0-3) H 05/22/17 20:08 Ur Squamous Epith Cells 1 /hpf (0-5) 05/22/17 20:08 Urine Bacteria Occ (<OCC) H 05/22/17 20:08 Hyaline Casts 3-5 /lpf (0-2) H 05/19/17 06:25 Urine HCG, Qual Negative (NEGATIVE) 05/22/17 06:26 - Hospital Course Hospital Course: CHIEF COMPLAINTS TODAY : PT. ADMITTED FROM [place] WITH UTI AND INFECTED SUPRAPUBIC CATHER INFECTION PT HAD BACK TRAUMA AND SURGERY WITH LOWER EXT PARAPLEGIA CURRENTLY PT IS ON MULTIPLE NARCOTICS AND PAIN MEDS ID/UROLOGY PAIN MANAGEMENT/ANEASTHESIA CONSULTED PT'S URINE SHOWED MULTI-RESISTANT E.COLI PT RESPONDED TO IV AB MEREAM SUPRA PUBIC CATHER WAS CHANGED PT HAS SERIOUS PROBLEM WITH NARCOTIC DEPENDENCY REQUIRED IV MS Q 1 HR PT IS TRANSFERRED BACK TO [place] ON IV AB 05/24 PT WAS D/C NEXT DAY DUE TO IV AB Discharge Exam - Head Exam Head Exam: NORMAL INSPECTION Discharge Plan - Follow Up Plan Condition: FAIR Disposition: REHAB FACILITY/REHAB UNIT Instructions: Urinary Tract Infection in Children (DC), Urinary Tract Infection in Children (GEN), How to Care for Your Suprapubic Catheter (DC), How to Care for Your Suprapubic Catheter (GEN), Catheter-associated Urinary Tract Infection (DC), Catheter-associated Urinary Tract Infection (GEN) Additional Instructions: PLACE UNDER DR. CARRENO'S SERVICE WHILE AT [facility]---CALL UPON ARRIVAL FOR ADMITTING ORDERS. HAS COMPLETED ANTIBIOTIC COURSE ALREADY. OTHER MEDS, CONTINUE PER DR. CARRENO. Referrals: Cara Pina MD [Staff Provider] - Senait Carreno MD [Staff Provider] - Sang Molina MD [Staff Provider] -
--- NOTE | 2017-05-23 13:54 | CP.PCM.PN ---
Subjective - Date & Time of Evaluation Date of Evaluation: 05/23/17 Time of Evaluation: 13:54 - Subjective Subjective: DISCUSSED D/C PLAN AND IV ABX WITH DR. ALVAREZ, AND PT IS TO RECEIVE AMIKACIN DOSE TODAY AND ONE TOMORROW. PER DR. ALVAREZ PT CAN BE D/C TODAY TO [place]. PER RUDDY MOTA, PT UNABLE TO GO TO [place] W IV ACCESS DUE TO HER H/O DRUG USE. ALL D/ C ARRANGEMENTS MADE FOR TOMORROW, 05/24/17. PT TO REC LAST DOSE OF AMIKACIN TOMORROW AM AND THEN BE D/C TO [place] AFTER. ISOLATION D/C PER DR. ALVAREZ. DISCUSSED PLAN W PRIMARY RN PADMINI. NO FURTHER ORDERS. Objective - Vital Signs/Intake and Output Vital Signs (last 24 hours): Temp Pulse Resp BP Pulse Ox 98 F 62 20 118/81 97 05/23/17 07:00 05/23/17 07:00 05/23/17 07:00 05/23/17 07:00 05/23/17 07:00 Intake and Output: 05/23/17 05/23/17 06:59 18:59 Output Total 1000 Balance -1000 - Medications Medications: Current Medications Acetaminophen (Tylenol 325mg Tab) 325 mg PO DAILY [facility] Last Admin: 05/23/17 06:54 Dose: 325 mg Ascorbic Acid (Vitamin C 500 Mg Tab) 500 mg PO DAILY [facility] Last Admin: 05/23/17 09:38 Dose: 500 mg Baclofen (Lioresal) 10 mg PO TID [facility] Last Admin: 05/23/17 09:30 Dose: 10 mg Diazepam (Valium) 5 mg IVP Q6H PRN PRN Reason: Restlessness Last Admin: 05/23/17 13:04 Dose: 5 mg Docusate Sodium (Colace) 200 mg PO HS [facility] Last Admin: 05/22/17 22:15 Dose: 200 mg Famotidine (Pepcid) 20 mg PO DAILY [facility] Last Admin: 05/23/17 09:30 Dose: 20 mg Fentanyl (Duragesic) 1 patch TD Q72 [facility] Last Admin: 05/20/17 18:12 Dose: 1 patch Gabapentin (Neurontin) 400 mg PO QID [facility] Last Admin: 05/23/17 09:30 Dose: 400 mg Home Med (Tizanidine Hcl [Zanaflex]) 2 mg PO Q8 [facility] Last Admin: 05/23/17 06:54 Dose: Not Given Amikacin Sulfate 1,000 mg/ (Sodium Chloride) 104 mls @ 100 mls/hr IV ONCE ONE Stop: 05/23/17 14:02 Amikacin Sulfate 1,000 mg/ (Sodium Chloride) 104 mls @ 100 mls/hr IV ONCE ONE Stop: 05/24/17 11:02 Lactulose (Enulose) 20 gm PO TID [facility] Last Admin: 05/23/17 09:30 Dose: 20 gm Levothyroxine Sodium (Synthroid) 150 mcg PO DAILY@0630 [facility] Last Admin: 05/23/17 06:49 Dose: 150 mcg Magnesium Hydroxide (Milk Of Magnesia) 30 ml PO DAILY PRN PRN Reason: Constipation Morphine Sulfate (Morphine) 1 mg IVP Q1H PRN PRN Reason: Pain, moderate (4-7) Last Admin: 05/23/17 09:38 Dose: 1 mg Morphine Sulfate (Morphine) 4 mg IV Q3 PRN PRN Reason: Pain, severe (8-10) Last Admin: 05/23/17 04:37 Dose: 4 mg Multivitamins (Hexavitamin) 1 tab PO DAILY [facility] Last Admin: 05/23/17 09:30 Dose: 1 tab Nicotine (Nicoderm Cq) 1 patch TD DAILY [facility] Last Admin: 05/23/17 09:33 Dose: 1 patch Oxybutynin Chloride (Ditropan Tab) 5 mg PO TID [facility] Last Admin: 05/23/17 09:29 Dose: 5 mg Pregabalin (Lyrica) 50 mg PO Q12 [facility] Last Admin: 05/23/17 09:38 Dose: 50 mg Rivaroxaban (Xarelto) 10 mg PO DAILY [facility] Last Admin: 05/23/17 09:30 Dose: 10 mg Topiramate (Topamax) 25 mg PO DAILY [facility] Last Admin: 05/22/17 12:06 Dose: 25 mg Venlafaxine HCl (Effexor Xr) 300 mg PO DAILY [facility] Last Admin: 05/23/17 09:29 Dose: 300 mg Zolpidem Tartrate (Ambien) 5 mg PO HS [facility] Last Admin: 05/22/17 22:17 Dose: 5 mg - Labs Labs: 05/19/17 07:12 05/19/17 07:12
--- NOTE | 2017-05-23 23:56 | CP.PCM.PN ---
Subjective - Date & Time of Evaluation Date of Evaluation: 05/23/17 Time of Evaluation: 23:56 - Subjective Subjective: afebrile s/p suprapubic catheter changed.05/22/18 NO NEW COMPLAINTS Repeat UA urine culture negative growth Reason got 1 dose of amikacin 1 g postoperatively. 05/22/17 Start IV amikacin 500 mg q 24hrly x 2days post op. 05/23/17 ,05/24/17. Destiny to transfer to subacute rehabilitation DC ISOLATION. CASE DISCUSSED WITH GRINDER SET UP OPERATOR MS HERNANDEZ . DESTINY TO DISCHARGE IN A.M. AFTER D/C PICC LINE Objective - Vital Signs/Intake and Output Vital Signs (last 24 hours): Temp Pulse Resp BP Pulse Ox 98.3 F 81 20 132/88 98 05/23/17 15:08 05/23/17 15:08 05/23/17 15:08 05/23/17 15:08 05/23/17 15:08 Intake and Output: 05/23/17 05/24/17 18:59 06:59 Intake Total 580 Output Total 2200 1300 Balance -1620 -1300 - Medications Medications: Current Medications Acetaminophen (Tylenol 325mg Tab) 325 mg PO DAILY [facility] Last Admin: 05/23/17 06:54 Dose: 325 mg Ascorbic Acid (Vitamin C 500 Mg Tab) 500 mg PO DAILY [facility] Last Admin: 05/23/17 09:38 Dose: 500 mg Baclofen (Lioresal) 10 mg PO TID [facility] Last Admin: 05/23/17 18:54 Dose: 10 mg Diazepam (Valium) 5 mg IVP Q6H PRN PRN Reason: Restlessness Last Admin: 05/23/17 18:54 Dose: 5 mg Docusate Sodium (Colace) 200 mg PO HS [facility] Last Admin: 05/23/17 21:35 Dose: 200 mg Famotidine (Pepcid) 20 mg PO DAILY [facility] Last Admin: 05/23/17 09:30 Dose: 20 mg Fentanyl (Duragesic) 1 patch TD Q72 [facility] Last Admin: 05/20/17 18:12 Dose: 1 patch Gabapentin (Neurontin) 400 mg PO QID [facility] Last Admin: 05/23/17 21:36 Dose: 400 mg Home Med (Tizanidine Hcl [Zanaflex]) 2 mg PO Q8 [facility] Last Admin: 05/23/17 21:40 Dose: Not Given Amikacin Sulfate 1,000 mg/ (Sodium Chloride) 104 mls @ 100 mls/hr IV ONCE ONE Stop: 05/24/17 11:02 Lactulose (Enulose) 20 gm PO TID [facility] Last Admin: 05/23/17 18:54 Dose: 20 gm Levothyroxine Sodium (Synthroid) 150 mcg PO DAILY@0630 [facility] Last Admin: 05/23/17 06:49 Dose: 150 mcg Magnesium Hydroxide (Milk Of Magnesia) 30 ml PO DAILY PRN PRN Reason: Constipation Morphine Sulfate (Morphine) 1 mg IVP Q1H PRN PRN Reason: Pain, moderate (4-7) Last Admin: 05/23/17 13:59 Dose: 1 mg Morphine Sulfate (Morphine) 4 mg IV Q3 PRN PRN Reason: Pain, severe (8-10) Last Admin: 05/23/17 20:43 Dose: 4 mg Multivitamins (Hexavitamin) 1 tab PO DAILY [facility] Last Admin: 05/23/17 09:30 Dose: 1 tab Nicotine (Nicoderm Cq) 1 patch TD DAILY [facility] Last Admin: 05/23/17 09:33 Dose: 1 patch Oxybutynin Chloride (Ditropan Tab) 5 mg PO TID [facility] Last Admin: 05/23/17 18:54 Dose: 5 mg Pregabalin (Lyrica) 50 mg PO Q12 [facility] Last Admin: 05/23/17 21:36 Dose: 50 mg Rivaroxaban (Xarelto) 10 mg PO DAILY [facility] Last Admin: 05/23/17 09:30 Dose: 10 mg Topiramate (Topamax) 25 mg PO DAILY [facility] Last Admin: 05/22/17 12:06 Dose: 25 mg Venlafaxine HCl (Effexor Xr) 300 mg PO DAILY [facility] Last Admin: 05/23/17 09:29 Dose: 300 mg Zolpidem Tartrate (Ambien) 5 mg PO HS [facility] Last Admin: 05/23/17 21:36 Dose: 5 mg - Labs Labs: 05/19/17 07:12 05/19/17 07:12 - Constitutional Appears: No Acute Distress - Eye Exam Eye Exam: EOMI, PERRL - ENT Exam ENT Exam: Normal Oropharynx - Neck Exam Neck Exam: Normal Inspection - Respiratory Exam Respiratory Exam: Clear to Ausculation Bilateral - Cardiovascular Exam Cardiovascular Exam: REGULAR RHYTHM, +S1, +S2 - GI/Abdominal Exam GI & Abdominal Exam: Soft, Normal Bowel Sounds (NO TENDERNESS SUPRAPUBIC SITE.) - Extremities Exam Extremities Exam: absent: Calf Tenderness - Neurological Exam Neurological Exam: Abnormal Gait (PATIENT PARAPLEGIC BELOW THE WAIST.), Awake, CN II-XII Intact - Psychiatric Exam Psychiatric exam: Normal Mood - Skin Skin Exam: Warm Assessment and Plan (1) Chronic suprapubic catheter Status: Acute (2) Complicated urinary tract infection Status: Acute (3) Lower extremity paralysis Status: Acute
[2017-05-24] MEDS: diaZEpam 10 mg/2 ml Inj IVP PRN ×3 (01:50→16:38)
[2017-05-24] MEDS ORDERED: diaZEpam 10 mg/2 ml Inj IVP ONE (03:06)
[2017-05-24] MEDS: Morphine 4 MG/ML VIAL IV PRN ×5 (03:20→18:06)
[2017-05-24] MEDS: Levothyroxine 150 MCG TAB PO SCH (06:25)
[2017-05-24] MEDS: TIZANIDINE HCL 2 MG PO SCH ×2 (06:26→14:00)
[2017-05-24 08:06] VITALS: TEMP 98.6
[2017-05-24] MEDS: Multiple Vitamins Tab PO SCH (10:04)
[2017-05-24] MEDS: Venlafaxine 150 mg ER Cap PO SCH (10:04)
--- NOTE | 2017-05-24 11:18 | CP.PCM.PCO ---
Physician Communication Note - Physician Communication Note Physician Communication Note: Vital signs: T 98.6 ME 60/min BP 106/60 RR 20min. Patient is fast asleep
--- NOTE | 2017-05-24 11:41 | CP.PCM.PN ---
Subjective - Date & Time of Evaluation Date of Evaluation: 05/24/17 Time of Evaluation: 11:10 - Subjective Subjective: Vital signs: T 98.6 SD 60/min BP 106/60 RR 20min. Patient is fast asleep in bed sitting up, doubled up (paraplegic), not in any form of distress. When informed that the 1 mg. iv Morphine prn every hour has been discontinued as Valium 5 mg and 4mg. Morphine iv every 4 hours PRN have been ordered, she started yelling and screaming, asking to be discharged!!!. We are all well aware that she is on huge doses of narcotics with the patient herself advising us that she has developed tolerance over time for the pain killers such that bigger and bigger doses of narcotics give satisfactory relief of her acute on chronic pain. Her suprapubic tube was changed on 05/21/2017, a good three days ago. We will continue to monitor her very, very closedly. As sad as the case is we have to follow her wishes and suggestion as how to best deal with her difficulty....The nurse informs us that there is a urine leak periurethrally...and she is scheduled to go back to the OR for solution to the problem on [id number].She is maintained on Amikacin 1 g. once a day ivpb. Objective - Vital Signs/Intake and Output Vital Signs (last 24 hours): Temp Pulse Resp BP Pulse Ox 98.6 F 60 20 106/68 99 05/24/17 07:15 05/24/17 07:15 05/24/17 07:15 05/24/17 07:15 05/24/17 07:15 Intake and Output: 05/24/17 05/24/17 06:59 18:59 Output Total 2100 Balance -2100 - Medications Medications: Current Medications Acetaminophen (Tylenol 325mg Tab) 325 mg PO DAILY [facility] Last Admin: 05/24/17 10:05 Dose: Not Given Ascorbic Acid (Vitamin C 500 Mg Tab) 500 mg PO DAILY [facility] Last Admin: 05/24/17 10:04 Dose: 500 mg Baclofen (Lioresal) 10 mg PO TID [facility] Last Admin: 05/24/17 10:04 Dose: 10 mg Diazepam (Valium) 5 mg IVP Q6H PRN PRN Reason: Restlessness Last Admin: 05/24/17 10:02 Dose: 5 mg Docusate Sodium (Colace) 200 mg PO HS [facility] Last Admin: 05/23/17 21:35 Dose: 200 mg Famotidine (Pepcid) 20 mg PO DAILY [facility] Last Admin: 05/24/17 10:04 Dose: 20 mg Fentanyl (Duragesic) 1 patch TD Q72 [facility] Last Admin: 05/20/17 18:12 Dose: 1 patch Gabapentin (Neurontin) 400 mg PO QID [facility] Last Admin: 05/24/17 10:04 Dose: 400 mg Home Med (Tizanidine Hcl [Zanaflex]) 2 mg PO Q8 [facility] Last Admin: 05/24/17 06:26 Dose: Not Given Lactulose (Enulose) 20 gm PO TID [facility] Last Admin: 05/24/17 10:04 Dose: 20 gm Levothyroxine Sodium (Synthroid) 150 mcg PO DAILY@0630 [facility] Last Admin: 05/24/17 06:25 Dose: 150 mcg Magnesium Hydroxide (Milk Of Magnesia) 30 ml PO DAILY PRN PRN Reason: Constipation Morphine Sulfate (Morphine) 4 mg IV Q3 PRN PRN Reason: Pain, severe (8-10) Last Admin: 05/24/17 06:55 Dose: 4 mg Multivitamins (Hexavitamin) 1 tab PO DAILY [facility] Last Admin: 05/24/17 10:04 Dose: 1 tab Nicotine (Nicoderm Cq) 1 patch TD DAILY [facility] Last Admin: 05/24/17 10:05 Dose: 1 patch Oxybutynin Chloride (Ditropan Tab) 5 mg PO TID [facility] Last Admin: 05/24/17 10:04 Dose: 5 mg Pregabalin (Lyrica) 50 mg PO Q12 [facility] Last Admin: 05/24/17 10:05 Dose: 50 mg Rivaroxaban (Xarelto) 10 mg PO DAILY [facility] Last Admin: 05/24/17 10:04 Dose: 10 mg Topiramate (Topamax) 25 mg PO DAILY [facility] Last Admin: 05/24/17 10:05 Dose: 25 mg Venlafaxine HCl (Effexor Xr) 300 mg PO DAILY [facility] Last Admin: 05/24/17 10:04 Dose: 300 mg Zolpidem Tartrate (Ambien) 5 mg PO HS [facility] Last Admin: 05/23/17 21:36 Dose: 5 mg - Labs Labs: 05/19/17 07:12 05/19/17 07:12
[2017-05-24 14:27] VITALS: BP 106/64; PULSE 85; O2SAT 98
--- NOTE | 2017-06-16 12:23 | OP ---
PROCEDURE DATE: 05/22/2017 PREOPERATIVE DIAGNOSES: Voiding dysfunction, urinary incontinence, diminished bladder capacity, hematuria, and a nonfunctioning catheter. POSTOPERATIVE DIAGNOSES: Voiding dysfunction, urinary incontinence, diminished bladder capacity, hematuria, and a nonfunctioning catheter. PROCEDURE: A complicated change of a cystostomy tube and a cystogram. SURGEON: Tom Molina MD ESTIMATED BLOOD LOSS: Less than 10 mL. At the termination of the procedure, the patient has a new cystostomy tube in place and draining well. INDICATIONS: The patient has a significant medical history. See the history and physical for further details and consultations on the chart. She is paraplegic and she is narcotic dependent with heavy-dose narcotic with morphine and various other anti-anxiety medications, see the list on the chart. Prior to meeting the patient, she had called from a prison. I spoke to her directly where she had reported that they had placed a cystostomy tube in [facility]. They had originally placed it in another location, the [facility] is one possibility or down in [facility] The patient has been in multiple hospitals all the time. The patient reports that they are unable to change her cystostomy tube without sedation. We discussed the options and we brought her here to the hospital for further evaluation. She is now here for the above-listed testing. FINDINGS: The bladder capacity is somewhat diminished. We are not able to distend the bladder, but we are able to insert a new cystostomy tube. I also mentioned to the patient other options about surgeries that I do not do, but perhaps is available in terms of bladder augmentation or like or even just creation of a ileostomy or creating a bowel diversion, all were discussed with the patient, but either way today, she came for the above procedure. DESCRIPTION OF PROCEDURE: After discussing the options with the patient, the patient was brought to the OR, placed on the table. Routine monitors were placed. Time-out was called to confirm the patient, positioning, etc. The patient was prepped in sterile fashion. We removed the old catheter. I replaced it with a new catheter. We then performed a cystogram. Initially, the drainage was not perfect. We had to readjust a few times and take multiple fluoroscopic imaging until we were satisfied that we were in a good location. At the termination of the procedure, the cystoscopy tube was in good location and it irrigated throughout. The patient tolerated the procedure well without complication. Tom Molina MD
== END 2017-05-24 22:00 | disposition home or self-care (01) | DRG 820 ==
LOC: C.ER 20:26 → C.9E 23:04 → C.3T 23:04 → C.5T 05-19 17:34
PROVIDERS: ADMIT Internal Medicine Cardiovascular Disease; ATTEND Internal Medicine Cardiovascular Disease
PROC: 0T2BX0Z Change Drainage Device in Bladder, External Approach (ICD-10-PCS; principal; 2017-05-22 07:45)
PROC: BT10ZZZ Fluoroscopy of Bladder (ICD-10-PCS; 2017-05-22 07:45)
DX: T83.510A Infection and inflammatory reaction due to cystostomy catheter, initial encounter (principal); G82.20 Paraplegia, unspecified; N39.0 Urinary tract infection, site not specified; F11.20 Opioid dependence, uncomplicated; B96.20 Unspecified Escherichia coli [E. coli] as the cause of diseases classified elsewhere; M81.0 Age-related osteoporosis without current pathological fracture; Z16.24 Resistance to multiple antibiotics; R31.29 Other microscopic hematuria; Z88.0 Allergy status to penicillin; Z87.891 Personal history of nicotine dependence

== ENCOUNTER 2017-05-25 03:35 | Emergency (ER) | payer OTHER ==
--- NOTE | 2017-05-25 04:40 | C.PDOC ---
History Of Present Illness Patient sent to ED from [place] for evaluation after she was found with an empty syringe on her person. Patient was discharged from [facility] to [place] on 05/24. She states she was getting IV morphine and PO Valium q4 while here, and when she arrived at [place] they gave her 30mg PO Morphine and PO Ambien - she states this is why she currently appears drowsy. She denies drug use, states needle was an old needle that she didn't realize was in her purse from her "diabetic exboyfriend". Time Seen by Provider: 05/25/17 04:27 Chief Complaint (Nursing): Medical Clearance History Per: Patient History/Exam Limitations: no limitations Current Symptoms Are (Timing): Better Severity: Mild Past Medical History Reviewed: Historical Data, Nursing Documentation, Vital Signs Vital Signs: Last Vital Signs Temp 98.5 F 05/25/17 08:12 Pulse 75 05/25/17 08:12 Resp 16 05/25/17 08:12 BP 109/68 05/25/17 08:12 Pulse Ox 95 05/25/17 08:12 - Medical History PMH: Depression Surgical History: Back Surgery Family History: States: No Known Family Hx - Social History Hx Alcohol Use: No Hx Substance Use: No - Immunization History Hx Tetanus Toxoid Vaccination: No Hx Influenza Vaccination: No Hx Pneumococcal Vaccination: No Review Of Systems Except As Marked, All Systems Reviewed And Found Negative. Constitutional: Negative for: Fever, Chills Cardiovascular: Negative for: Chest Pain Respiratory: Negative for: Shortness of Breath Neurological: Positive for: Other (sleepy) Physical Exam - Physical Exam Appears: Well, Non-toxic, Other (appears mildy drowsy) Head: Atraumatic, Normacephalic Eye(s): bilateral: PERRL (dilated pupils B/L), EOMI Oral Mucosa: Moist Cardiovascular: Rhythm Regular Respiratory: Normal Breath Sounds, No Rales, No Rhonchi, No Wheezing Gastrointestinal/Abdominal: Normal Exam, Bowel Sounds, Soft, No Tenderness Neurological/Psych: Oriented x3 ED Course And Treatment O2 Sat by Pulse Oximetry: 98 (RA) Pulse Ox Interpretation: Normal Progress Note: Patient AAOx3, appears mildly drowsy but states she was given morphine and ambien on arrival to [place]. Denies drug use. Vitals stable. Will discharge back to [place]. Disposition Counseled Patient/Family Regarding: Diagnosis - Disposition Referrals: [facility] [place] [facility] [Outside] Disposition: Trans to Other Acute Care Hosp Disposition Time: 04:35 Condition: STABLE Forms: [employer] (Norwegian), General Discharge Instructions Print Language: HUNGARIAN - POA Present On Arrival: None - Clinical Impression Clinical Impression: Medical assessment
[2017-05-25 08:13] VITALS: BP 109/68; PULSE 75; RESP 16; TEMP 98.5
[2017-05-31 09:14] VITALS: O2SAT 98
== END 2017-05-25 08:14 | disposition short-term general hospital (02) ==
LOC: C.ER 03:35
DX: Z00.8 Encounter for other general examination (principal)

== ENCOUNTER 2017-05-26 07:56 | Inpatient (IN) | payer OTHER ==
--- NOTE | 2017-05-26 08:42 | C.PDOC ---
History Of Present Illness 41 year old female sent from [facility] for replacement of suprapubic catheter by Dr Ted Molina. Patient complains of chronic back pain. 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 Note patient also has polypharmacy for opioids. Time Seen by Provider: 05/26/17 08:22 Chief Complaint (Nursing): Medical Clearance History Per: Patient History/Exam Limitations: no limitations Onset/Duration Of Symptoms: Days Past Medical History Reviewed: Historical Data, Nursing Documentation, Vital Signs Vital Signs: Last Vital Signs Temp 97.7 F 05/26/17 08:16 Pulse 84 05/26/17 08:16 Resp 20 05/26/17 08:16 BP 129/83 05/26/17 08:16 Pulse Ox 99 05/26/17 09:39 - Medical History PMH: Depression Other PMH: chronic suprapubic catheter Surgical History: Back Surgery Family History: States: No Known Family Hx - Social History Hx Alcohol Use: No Hx Substance Use: No - Immunization History Hx Tetanus Toxoid Vaccination: No Hx Influenza Vaccination: No Hx Pneumococcal Vaccination: No Review Of Systems Constitutional: Negative for: Fever Cardiovascular: Negative for: Palpitations Respiratory: Negative for: Shortness of Breath Gastrointestinal: Negative for: Vomiting, Abdominal Pain Musculoskeletal: Positive for: Back Pain (Chronic back pain ) Physical Exam - Physical Exam Appears: Non-toxic, No Acute Distress Skin: Warm, Dry Head: Atraumatic, Normacephalic Eye(s): bilateral: Normal Inspection, EOMI Oral Mucosa: Moist Neck: Normal ROM Chest: Symmetrical, No Tenderness Cardiovascular: Rhythm Regular, No Murmur Respiratory: Normal Breath Sounds, No Rales, No Rhonchi, No Wheezing Gastrointestinal/Abdominal: Soft, No Tenderness, No Guarding, No Rebound, Other (suprapubic catherter ) Back: Normal Inspection Extremity: Normal ROM (to upper extremities), No Deformity, No Swelling, Other ( (+) LE paralysis ) Neurological/Psych: Oriented x3, Normal Speech, Other ((+) Depressed. ) ED Course And Treatment - Laboratory Results Result Diagrams: 05/26/17 08:57 05/26/17 08:57 Lab Interpretation: No Acute Changes O2 Sat by Pulse Oximetry: 99 (RA) Pulse Ox Interpretation: Normal Medical Decision Making Medical Decision Making: Impression: Sent for [facility] with Dr Ted Molina for suprapubic catheter change Prior records reviewed: patient was seen last night 05/25/17for medical clearance after patient was found to have needle and syringe on body, and was drowsy. Prior to this patient was admitted on 05/17/17 for complicated UTI, suprapubic catheter and discharged on the 05/24. Plan: * CBC * CMP * Urinalysis Progress: Patient complaining of pain has not taken her pain meds. Will order morphine and valium and admit to [facility] Disposition - Disposition Disposition: HOSPITALIZED Disposition Time: 09:37 Condition: FAIR Forms: [employer] (Tajik) - POA Present On Arrival: Cath Associated UTI - Clinical Impression Clinical Impression: Chronic suprapubic catheter, Encounter for suprapubic catheter care - PA / OUTSOLE HANDLER / Resident Statement MD/DO has reviewed & agrees with the documentation as recorded. - Scribe Statement The provider has reviewed the documentation as recorded by the Scribe Shahnaz Amaro All medical record entries made by the Scribe were at my direction and personally dictated by me. I have reviewed the chart and agree that the record accurately reflects my personal performance of the history, physical exam, medical decision making, and the department course for this patient. I have also personally directed, reviewed, and agree with the discharge instructions and disposition. Decision To Admit - Pt Status Changed To: Hospital Disposition Of: [facility]- Endo,OR,Cath,IR - . Bed Request Type: Same Day Surgery Admitting Physician: Sang Molina Patient Diagnosis: Chronic suprapubic catheter, Encounter for suprapubic catheter care
[2017-05-26 09:04] LABS: BASO % 0.6 % (0.0-2.0); EOS # 0.2 K/uL (0.0-0.7); EOS % 3.2 % (0.0-4.0); HEMATOCRIT 37.6 % (34.0-47.0); LYMPH # 2.1 K/uL (1.0-4.3); LYMPH % 39.8 % (20.0-40.0); MEAN CELL VOLUME 85.7 fL (81.0-99.0); MEAN CORPUSCULAR HEMOGLOBIN 26.4 pg (27.0-31.0); MEAN CORPUSCULAR HGB CONC 30.8 g/dL (33.0-37.0); MONO # 0.8 K/uL (0.0-0.8); MONO % 14.8 % (0.0-10.0); RED CELL DISTRIBUTION WIDTH 15.7 % (11.5-14.5); WHITE BLOOD COUNT 5.3 K/uL (4.8-10.8)
[2017-05-26 09:11] LABS: CHLORIDE 104 mmol/L (98-107); POTASSIUM 4.6 mmol/L (3.6-5.2); RBC URINE 343 /hpf (0-3); SODIUM 138 mmol/L (132-148); URINE BACTERIA OCC (<OCC); URINE BILIRUBIN NEGATIVE (NEGATIVE); URINE BLOOD 3+ (NEGATIVE); URINE COLOR Amber (YELLOW); URINE GLUCOSE (UA) NORMAL (Normal); URINE KETONE NEGATIVE (NEGATIVE); URINE LEUKOCYTE ESTERASE 3+ Leu/uL (Negative); URINE PROTEIN 2+ mg/dL (NEGATIVE); WBC URINE 121 /hpf (0-5)
[2017-05-26 09:13] LABS: GFR AFRICAN-AMERICAN > 60
[2017-05-26 09:14] LABS: ALB/GLOB RATIO 0.8 (1.0-2.1); ALKALINE PHOSPHATASE 79 U/L (38-126); ALT/SGPT 122 U/L (9-52); AST/SGOT 160 U/L (14-36); BILIRUBIN,TOTAL 0.6 mg/dL (0.2-1.3); BLOOD UREA NITROGEN 17 mg/dL (7-17); CALCIUM 8.5 mg/dl (8.6-10.4); CARBON DIOXIDE 26 mmol/L (22-30); GLUCOSE,RANDOM 85 mg/dL (65-105); TOTAL PROTEIN 7.4 g/dL (6.3-8.3)
[2017-05-26] MEDS ORDERED: diaZEpam 10 mg/2 ml Inj IVP ONE (09:29)
[2017-05-26] MEDS ORDERED: diaZEpam 10 mg/2 ml Inj ONE (09:46)
[2017-05-26] MEDS ORDERED: Iohexol 240 (50 ml) ONE (15:25)
[2017-05-26] MEDS ORDERED: cefTRIAXone IV 1 gm in Dextros 0 ML IVPB ONE (15:25)
[2017-05-26] MEDS ORDERED: Iohexol 240 200 ML IJ ONE (15:25)
[2017-05-26] MEDS ORDERED: Midazolam 2 MG/2 ML VIAL ONE ×2 (15:37→16:34)
[2017-05-26] MEDS ORDERED: Propofol 10 mg/ml Inj (20 ML) ONE (15:37)
[2017-05-26] MEDS ORDERED: Lactated Ringer's 1,000 ML IV ONE (15:40)
[2017-05-26] MEDS ORDERED: Ciprofloxacin 400mg/200ml D5W 400 MG/200 ML BAG IVPB ONE (15:47)
[2017-05-26] MEDS ORDERED: Morphine 4 MG/ML VIAL IV PRN (16:17)
[2017-05-26] MEDS ORDERED: HYDROmorphone 0.5 mg/0.5 ml ISec ONE (16:28)
[2017-05-26] MEDS: HYDROmorphone 0.5 mg/0.5 ml ISec IVP PRN ×4 (16:30→17:05)
[2017-05-26] MEDS ORDERED: Midazolam 2 MG/2 ML VIAL IVP ONE (16:34)
--- NOTE | 2017-05-26 17:38 | RAD ---
HISTORY: Change suprapubic tube. COMPARISON: Comparison made with prior study 05/22/2017 FINDINGS: BOWEL: Large amount of stool seen throughout the colon consistent with fecal retention/ constipation. BONES: Osseous structures intact. OTHER FINDINGS: There is a in situ suprapubic catheter. IMPRESSION: In situ suprapubic catheter. Findings consistent with constipation.
[2017-05-26] MEDS ORDERED: diaZEpam 10 mg/2 ml Inj IVP PRN (17:48)
[2017-05-26] MEDS: Morphine 4 MG/ML VIAL IVP PRN (20:40)
[2017-05-27] MEDS: Morphine 4 MG/ML VIAL IVP PRN ×8 (00:11→23:32)
[2017-05-27] MEDS: diaZEpam 10 mg/2 ml Inj IVP PRN ×4 (01:55→19:35)
[2017-05-28] MEDS: diaZEpam 10 mg/2 ml Inj IVP PRN ×4 (01:32→20:25)
[2017-05-28] MEDS: Morphine 4 MG/ML VIAL IVP PRN ×7 (02:52→22:03)
[2017-05-28] MEDS: Magnesium Hydroxide Susp 30 ml UD PO PRN (12:20)
--- NOTE | 2017-05-28 14:58 | RAD ---
PROCEDURE: INTRA OP FLUOROSCOPY OF THE PELVIS: HISTORY: CYSTO COMPARISON: Cystogram 05/22/2017 TECHNIQUE: Intra under fluoroscopy was provided to the referring physician to assist in suprapubic catheter exchange apparently. FINDINGS: Spot fluoroscopic images of been identified been submitted identifying a wire coronal in the pelvis likely in the urinary bladder followed by deployment of a suprapubic catheter which sep subsequently opacified with iodinated contrast and subpatellar opacifies the urinary bladder. Please see operative report for further detail. 0.901 mGy is a total radiographic dose. 10.7 seconds of fluoroscopy time was utilized. IMPRESSION: Please see report for full details.
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
[2017-05-29] MEDS: diaZEpam 10 mg/2 ml Inj IVP PRN ×4 (05:17→22:48)
[2017-05-29] MEDS: Levothyroxine 150 MCG TAB PO SCH (08:12)
[2017-05-29] MEDS: Morphine 4 MG/ML VIAL IVP PRN ×5 (08:12→22:49)
[2017-05-29] MEDS: Venlafaxine 150 mg ER Cap PO SCH (09:46)
[2017-05-29] MEDS: Multiple Vitamins Tab PO SCH (09:46)
--- NOTE | 2017-05-29 12:48 | PCM.URO ---
Urology Progress Note - Objective Intake & Output: Intake & Output 05/28/17 05/29/17 05/29/17 18:59 06:59 18:59 Output Total 375 Balance -375 Output: Urine 375 Suprapubic 375 Vital Signs: Vital Signs - 24 hr 05/28/17 23:25 Temperature 97.9 F Pulse Rate 71 Respiratory 20 Rate Blood Pressure 100/67 O2 Sat by Pulse 99 Oximetry
[2017-05-30] MEDS: Morphine 4 MG/ML VIAL IVP PRN ×6 (02:44→21:57)
[2017-05-30] MEDS: diaZEpam 10 mg/2 ml Inj IVP PRN ×2 (04:42→11:16)
[2017-05-30] MEDS: Levothyroxine 150 MCG TAB PO SCH (08:01)
[2017-05-30] MEDS: Venlafaxine 150 mg ER Cap PO SCH (10:28)
[2017-05-30] MEDS: Multiple Vitamins Tab PO SCH (10:28)
[2017-05-30] MEDS: Magnesium Hydroxide Susp 30 ml UD PO PRN (14:12)
[2017-05-30] MEDS ORDERED: Morphine 4 MG/ML VIAL IVP PRN (23:33)
[2017-05-31] MEDS: Morphine 4 MG/ML VIAL IVP PRN ×2 (06:26→10:20)
[2017-05-31] MEDS: Levothyroxine 150 MCG TAB PO SCH (06:30)
[2017-05-31] MEDS: Multiple Vitamins Tab PO SCH (10:10)
[2017-05-31] MEDS: Venlafaxine 150 mg ER Cap PO SCH (10:11)
[2017-05-31] MEDS ORDERED: Morphine 4 MG/ML VIAL IM PRN (12:09)
[2017-05-31] MEDS: Morphine 4 MG/ML VIAL IV PRN ×4 (13:51→23:11)
[2017-06-01] MEDS: Morphine 4 MG/ML VIAL IV PRN ×6 (06:00→23:28)
[2017-06-01] MEDS: Levothyroxine 150 MCG TAB PO SCH (06:00)
[2017-06-01] MEDS: Venlafaxine 150 mg ER Cap PO SCH (10:39)
[2017-06-01] MEDS: Magnesium Hydroxide Susp 30 ml UD PO PRN (10:41)
[2017-06-01] MEDS: Multiple Vitamins Tab PO SCH (11:03)
[2017-06-02] MEDS: Morphine 4 MG/ML VIAL IV PRN ×4 (03:18→12:55)
[2017-06-02] MEDS: Levothyroxine 150 MCG TAB PO SCH (06:02)
[2017-06-02] MEDS: Venlafaxine 150 mg ER Cap PO SCH (09:41)
[2017-06-02] MEDS: Multiple Vitamins Tab PO SCH (09:42)
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
[2017-06-02] MEDS ORDERED: Naloxone 0.4 mg/ml Inj (Adult) IVP PRN (16:25)
[2017-06-03] MEDS: Levothyroxine 150 MCG TAB PO SCH (05:40)
[2017-06-03 06:44] VITALS: RESP 20
--- NOTE | 2017-06-03 07:00 | PCM.URO ---
Urology Progress Note - Subjective Abdominal Pain: Yes - Objective Lab Studies: Reviewed Intake & Output: Intake & Output 06/02/17 06/02/17 06/03/17 06:59 18:59 06:59 Intake Total 600 910.59 Output Total 800 1200 500 Balance -800 -600 410.59 Intake: Intake, IV Amount 10.59 Right Forearm 10.59 Oral 600 900 Output: Urine 800 1200 500 Suprapubic 800 1200 500 Other: # Bowel Movements 1 Vital Signs: Vital Signs - 24 hr 06/02/17 06/02/17 06/02/17 08:00 16:00 16:25 Temperature 98.3 F 99.9 F H 98.9 F Pulse Rate 68 92 H 89 Respiratory 20 20 20 Rate Blood Pressure 113/77 106/65 108/63 O2 Sat by Pulse 97 98 Oximetry 06/02/17 06/02/17 06/02/17 17:00 18:00 20:00 Temperature Pulse Rate 92 H 88 77 Respiratory 20 18 18 Rate Blood Pressure 106/65 103/61 112/67 O2 Sat by Pulse 99 98 98 Oximetry 06/02/17 06/03/17 06/03/17 22:00 02:15 05:45 Temperature 97.9 F 98.2 F Pulse Rate 60 69 77 Respiratory 17 18 20 Rate Blood Pressure 111/64 108/71 117/69 O2 Sat by Pulse 99 97 Oximetry
[2017-06-03] MEDS: Venlafaxine 150 mg ER Cap PO SCH (09:45)
[2017-06-03] MEDS: Multiple Vitamins Tab PO SCH (09:49)
[2017-06-03] MEDS: Magnesium Hydroxide Susp 30 ml UD PO PRN (13:39)
--- NOTE | 2017-06-03 15:43 | CP.PCM.HP ---
<Lino Barrera - Last Filed: 06/03/17 20:17> History of Present Illness - History of Present Illness History of Present Illness: PGY1 Consult for Dr. Herrera HPI: Patient is a 41 year old female with a PMH of urinary incontinence, bilateral lower extremity paralysis, hypothyroidism presenting to get a superpubic cath changed. She became paralyzed because of a missed diagnosed in 2011 with a bone/blood infection that left her paralyzed in both legs. Patient came here on Friday to have the super pubic cath changed by . She is know complaining that the cath that was placed is to small and falling out. She states that there is blood around the cath, but no noted blood on exam. Patient is also complaining of a rash on shoulders and chest that is puritic. ROS: * General: Denies fever, chills. Positive for pain around cath site * HEENT: denies * Resp:denies cough * Cardio: denies CP * GI: denies nausea/vomiting * Heme: denies * Derm: Positive rash on back and shoulders/erythema around superpubic cath site * MSK: back pain * Neuro: Positive for paralysis of both lower extremity * Psych: Positive for addiction to pain medication PMH: * Chronic back pain * Hypothyroidism * Phlebitis in right arm * Bilateral paralysis of LE * Urine incontinency * Atrophy of left kidney * Bacterimic MRSA PSH: * * Vein removal from right arm * Cyst removal in left side of neck * Placement of suprapubic change * Back Surgery FH: * Mom-Phlebitis * Dad-None Social: * EtOH - denies * Smoking: half a pack a day for 20 years * Drugs: purchased Reclutecet on the streets for her pain Meds: * Morphine 30 mg q3 hours * Oxycodone extended 20 mg q8 * Fentanyl 100 patch * Sinthroid * Baclafen 10mg TID Allergies: * Penicillin * Depicot Present on Admission - Present on Admission Any Indicators Present on Admission: No History of DVT/PE: No History of Uncontrolled Diabetes: No Urinary Catheter: No Decubitus Ulcer Present: No History Surgical Site Infection Following: None Review of Systems - Constitutional Constitutional: As Per HPI - EENT Eyes: As Per HPI Ears: As Per HPI Nose/Mouth/Throat: As Per HPI - Breasts Breasts: As Per HPI - Cardiovascular Cardiovascular: As Per HPI - Respiratory Respiratory: As Per HPI - Gastrointestinal Gastrointestinal: As Per HPI - Genitourinary Genitourinary: As Per HPI - Reproductive: Female Reproductive:Female: As Per HPI - Menstruation Menstruation: As Per HPI - Musculoskeletal Musculoskeletal: As Per HPI - Integumentary Integumentary: As Per HPI - Neurological Neurological: As Per HPI - Psychiatric Psychiatric: As Per HPI - Endocrine Endocrine: As Per HPI - Hematologic/Lymphatic Hematologic: As Per HPI Past Patient History - Infectious Disease Hx of Infectious Diseases: MRSA (urine) - Past Medical History & Family History Past Medical History?: Yes - Past Social History Smoking Status: Heavy Smoker > 10 Cigarettes Daily - CARDIAC Hx Cardiac Disorders: No - PULMONARY Hx Respiratory Disorders: No - NEUROLOGICAL Hx Neurological Disorder: No - HEENT Hx HEENT Problems: No - RENAL Hx Chronic Kidney Disease: No - ENDOCRINE/METABOLIC Hx Endocrine Disorders: No - HEMATOLOGICAL/ONCOLOGICAL Hx Blood Disorders: No - INTEGUMENTARY Hx Dermatological Problems: No - MUSCULOSKELETAL/RHEUMATOLOGICAL Hx Musculoskeletal Disorders: Yes Hx Back Pain: Yes Hx Falls: No Other/Comment: PARAPLEGIA. - GASTROINTESTINAL Hx Gastrointestinal Disorders: No - GENITOURINARY/GYNECOLOGICAL Hx Genitourinary Disorders: Yes Other/Comment: SUPRAPUBIC CATHETER - PSYCHIATRIC Hx Depression: Yes Hx Substance Use: No (denies) - SURGICAL HISTORY Hx Surgeries: Yes Hx Section: Yes Other/Comment: CYST REMOVAL NECK, HAND AND ABDOMEN. - ANESTHESIA Hx Anesthesia: Yes Hx Anesthesia Reactions: No Hx Malignant Hyperthermia: No Has any member of the family had a problem w/ anesthesia?: No Meds Allergies/Adverse Reactions: Allergies Allergy/AdvReac Type Severity Reaction Status Date / Time divalproex sodium Allergy Intermediate SWELLING Verified 05/26/17 13:06 [From Depakote] Penicillins Allergy Intermediate RASH Verified 05/26/17 13:06 trazodone Allergy Intermediate RASH Verified 05/26/17 13:06 Physical Exam - Constitutional Appears: Non-toxic, No Acute Distress, Chronically Ill - Head Exam Head Exam: ATRAUMATIC, NORMAL INSPECTION, NORMOCEPHALIC - Eye Exam Eye Exam: EOMI, Normal appearance, PERRL - ENT Exam ENT Exam: Mucous Membranes Moist - Neck Exam Neck exam: Positive for: Normal Inspection - Respiratory Exam Respiratory Exam: Clear to Auscultation Bilateral, NORMAL BREATHING PATTERN. absent: Rales, Rhonchi, Wheezes, Stridor - Cardiovascular Exam Cardiovascular Exam: REGULAR RHYTHM, RRR. absent: Bradycardia, Tachycardia, Diastolic murmur, Gallop, JVD, Systolic Murmur - GI/Abdominal Exam GI & Abdominal Exam: Normal Bowel Sounds, Soft. absent: Tenderness - Extremities Exam Extremities exam: Negative for: joint swelling, tenderness - Back Exam Back exam: paraspinal tenderness, rash noted (shoulder and chest, linear, pustular), tenderness (lumbar) - Neurological Exam Neurological exam: Alert, Oriented x3 - Psychiatric Exam Psychiatric exam: Agitated - Skin Skin Exam: Dry, Intact, Normal Color, Rash (as above), Warm Results - Vital Signs Recent Vital Signs: Last Vital Signs Temp 98.2 F 06/03/17 05:45 Pulse 77 06/03/17 05:45 Resp 20 06/03/17 05:45 BP 117/69 06/03/17 05:45 Pulse Ox 97 06/03/17 05:45 - Labs Result Diagrams: 05/26/17 08:57 05/26/17 08:57 Assessment & Plan - Assessment and Plan (Free Text) Assessment: Chronic Low Back Pain * Psych (Jcarlos) * Due to pateints recent behavior in the hopsital and addiction, does no feel comfortable prescribing ANY pain meds to the patient. * Medicine team will not prescribe further pain medicine for the patient * Anesthesia (Taneva) * Fetanyl 100mcg Q3D * Baclofen 10mg PO TID * Neurontin 400 mg PO QID * Ditropan 5mg po TID * Lyrica 50 mg PO Q12 Hypothyroidism * Synthroid 100 mcg * TSH/T4 - F/U Urinary Incontinence * Uro (John Paul Molina) * Suprapubic catheter in place Rash * Pustular linear rash Constipation * Colace 200mg PO HS * Lactulose 20 PO TID * Milk of Mag 30 PO QD PRN Tobacco Abuse * Nicotine patch Hx of Phlebitis * Xarelto 10mg PO QD Insomnia * Ambien 5mg PO HS Major depressive disorder, PTSD * Psych (Jcarlos) * see above * Topamax 25 mg PO QD * Effexor Xr 300 mg PO QD PPX * Pepcid 20 PO QD - Date & Time Date: 06/03/17 Time: 20:20 <Nano Herrera V - Last Filed: 06/04/17 02:21> Results - Vital Signs Recent Vital Signs: Last Vital Signs Temp 98.6 F 06/03/17 16:00 Pulse 81 06/03/17 16:00 Resp 20 06/03/17 16:00 BP 126/72 06/03/17 16:00 Pulse Ox 99 06/03/17 16:00 - Labs Result Diagrams: 05/26/17 08:57 05/26/17 08:57 Attending/Attestation - Attestation I have personally seen and examined this patient.: Yes I have fully participated in the care of the patient.: Yes I have reviewed all pertinent clinical information: Yes Notes (Text): This is a late computer entry for 06/03/17. Patient seen, examined, and case discussed with day-time resident and urologist , Dr Nicholas Molina. Patient with hx of chronic back pain, noted history of opioid/benzo dependence over 10 plus years (shorting acting Valium, short acting Morphine) for chronic low back pain, requesting for pain medication at bedside. Patient was seen earlier by pain management/anesthesia recommended for Dilaudid ADAPTIVE PHYSICAL EDUCATION SPECIALIST, however, confirmed with nursing and pharmacy, Dilaudid ADAPTIVE PHYSICAL EDUCATION SPECIALIST is not available. Patient reports she was attempted on long acting narcotic medication Oxydocone ER, Fentanyl pain about 10 years ago, but did not like feel sluggish/lethargy. Patient has not formally seen general practitioner for many years and has never seen pain management nor addiction medicine specialist as outpatient. Discussed with patient at length, given she has been on short acting benzo/narcotic medications for an extended period of time (10+ years), she is dependent and will need a specialist such as a pain management doctor to follow-up taper off short acting medications and create plan and will need follow-up given this will not be solve within a short duration (as in days) that this is something that is chronic and will need follow-up with specialist given this dependence on 10+ years and the fact these medications develop tolerance and addictive behaviors. Patient reports understanding and agrees regarding that her dependence on benzo (short-acting) and narcotic (short-acting) will take time to taper her off and will not be resolved within matter of days. Patient in evening at threatened to leave against medical advice but was seen by resident, and patient changed her mind. Discussed with Dr. Nicholas Molina (urology). Will need to f/u pain management to see if any alternatives. Psych is not comfortable prescribing any pain medications to the patient. Note: patient was sent from her rehab facility for exchange of catheter and intended for discharge back. However, per discussion with social/case management , they are currently working discharge planning for the patient. Social work per review of note: [facility] had refused to take the patient back to their facility; patient is "under60#. Discharge appears complicated given social matters. Assessment/Plan 1) Chronic Low Back Pain * Psych (Jcarlos)--> Due to patients recent behavior in the hospital and addiction , does no feel comfortable prescribing ANY pain meds to the patient-->Medicine team will not prescribe further pain medications-->will need to f/u pain management for other alternatives * Pain Management (Dr. 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 Glaser--> Per note, "She is veryu disatisfied with her pain management despite the high does of narcotics hse is receiving. She claims that [place] [facility] [place] all her medications she was given ADAPTIVE PHYSICAL EDUCATION SPECIALIST Morphine 4mg. iv pren every 3 hours as needed. I asked her if perhaps we can start with 2mg. iv prn ADAPTIVE PHYSICAL EDUCATION SPECIALIST every 3 hours; she refused Dilaudid.. She will be followedf up very, very closely and carefully observed for any untoward reaction to the newly added narcotic. She swears to the fact that this added ADAPTIVE PHYSICAL EDUCATION SPECIALIST narcotios is very much needed so ahe can spend quiet, relatively pain controlled evening . Apparently she is known to yell and scream and curse the nurses calling them idiots, etc. matthew her pain is overtly unbearable rendering the nights diificult for everybody. i gently explained to this patient why we are so reluctant to be prescribing narcotics and addicting medications as the consensus is that the huge current opiate inappropriate overuse is declared by the Department of Health, Division of consumer affairs as a totally unacceptable doctor caused public hazard, an opiate epidemic in this state." * Last note (Dr. Dr. Glaser 05/24/17): "Vital signs: T 98.6 [place] 60/min BP 106/ 60 RR 20min. Patient is fast asleep in bed sitting up, doubled up (paraplegic) , not in any form of distress. When informed that the 1 mg. iv Morphine prn every hour has been discontinued as Valium 5 mg and 4mg. Morphine iv every 4 hours PRN have been ordered, she started yelling and screaming, asking to be discharged!!!. We are all well aware that she is on huge doses of narcotics with the patient herself advising us that she has developed tolerance over time for the pain killers such that bigger and bigger doses of narcotics give satisfactory relief of her acute on chronic pain. Her suprapubic tube was changed on 05/21/2017, a good three days ago. We will continue to monitor her very, very closedly. As sad as the case is we have to follow her wishes and suggestion as how to best deal with her difficulty....The nurse informs us that there is a urine leak periurethrally...and she is scheduled to go back to the OR for solution to the problem on [id number].She is maintained on Amikacin 1 g. once a day ivpb. " 2) Hx of Hypothyroidism * Synthroid 100 mcg * TSH/T4 - F/U 3) Urinary Incontinence * Uro (John Paul Molina) on board * Suprapubic catheter in place; exchanged during admission * Prior hx of ESBL-->wherein Patient was on IV abx; Last admission urine culture on 05/22/17 shows urine culture show no growth. urine culture on this admission is contaminated. unclear if patient had doses of Amikacin to finish while discharged. 4) Rash * Pustular, small rash over base of neck and anterior chest; photos taken with permission of the patient, witness by resident, and shown to the patient to monitor rash 5) Constipation * Colace 200mg PO HS * Lactulose 20 PO TID * Milk of Mag 30 PO QD PRN * Likely secondary to narcotic dependence 6) Tobacco Abuse * Nicotine patch 7) Hx of Phlebitis * Xarelto 10mg PO QDaily-->per patient-->Patient's mother has plebitis; but unclear if its hertiable or provoked or how long she has actually been on medication 8) Insomnia * Ambien 5mg PO HS 9) Major depressive disorder, PTSD * Psych (Jcarlos) * see above * Topamax 25 mg PO QD * Effexor Xr 300 mg PO QD 10) PPX * Pepcid 20 PO QD * Social work and case managment 11) Disposition: Patient's discharge complicated by social issues regarding her long-term rehab ([facility]) who are refusing acceptance back to facility;
[2017-06-03] MEDS ORDERED: DiphenhydrAMINE 50 mg/ml Inj IVP STA (18:15)
[2017-06-03] MEDS ORDERED: Morphine 4 MG/ML VIAL IV ONE (18:16)
--- NOTE | 2017-06-03 21:31 | HP ---
UROLOGY EMERGENCY ADMISSION NOTE Please see previously dictated consult notes and H and Ps. HISTORY OF PRESENT ILLNESS: The patient is a lady who is being admitted under my care after having been seen by several other doctors and actually they have refused to admit the patient. She has a long history at various institutions. I am just becoming familiar with the patient from the last admission until now. She has a very strong history of narcotic abuse. She is currently taking morphine and OxyContin, see those 2 medications on the chart. She has recently had some trouble with her suprapubic catheter, which she says that she can only have it changed with interventional radiology or in an operating room with anesthesia. The patient says the catheter is not draining well and is asking me to change her catheter. I recently changed it, a cystogram confirmed its location and it is actually putting a liter or more out a day from the suprapubic catheter, but she is saying that it is not working properly, so we are bringing her back as an emergency for admission to change the catheter. In the interim, she apparently has also been asked not to return to the prison[facility] where she was living. There is a long story behind that, that this is per nursing notes and per nursing conversation, but [facility] is currently not letting her back in, so she is going to be admitted here, see the plans listed below and we are going to observe the patient. Change her catheter, take care of her, and then try to help her. See my notes below. PAST MEDICAL AND SURGICAL HISTORY: Dates back to an osteomyelitis that apparently left her paraplegic for which she says she has a lawsuit that is supposed to be shortly. In her estimation, we will solve all her problems. See my plans below. No history of an MS or CVA. SOCIAL HISTORY: She does not live with her mother. She has a child who apparently is living with her mother. We will need to verify . MEDICATIONS: See the long list on the chart, it is too much to place here, but they include Effexor, Lyrica, all kind of narcotics - morphine, OxyContin, fentanyl patches. Medications that I do not need to, i.e., prescribe on a regular basis, see my plans listed below. PHYSICAL EXAMINATION GENERAL: This is a well-developed, well-nourished female, appearing about her stated age, , currently resting comfortably in the [place]. ABDOMEN: Relatively soft, not grossly distended. The suprapubic catheter that I had placed previously is in place certainly. There is clear yellow urine in the bag. EXTREMITIES: Her lower extremities does have some mild form of contraction. IMPRESSION AND PLAN: The diagnosis done is voiding dysfunction, urine incontinence. In summary, this is a lady who has many difficulties. She has a longstanding history. At this point, she is extremely addicted to narcotics. I explained this to the patient at great length. I have been speaking with the patient by cell phone, by communicating by text messaging, and also been spending hours of time with the patient to discuss options and plans. We got into an immediate her urologic care because that is the least of her problems. We are going to change the suprapubic catheter; while I do this, I will perform a cystoscope to make sure that the catheter is in place properly. I know it is in place based on x-rays from before, but she says it is incontinent. We also know it is in place putting out a liter or more a day. I also did discuss with her that I am not in a capacity to do it, but there are doctors, perhaps she can have a bladder augmentation to see if this would improve her quality, but I suspect that she would need to find the [facility], but I did tell her there are other options instead of just living with the suprapubic catheter. More importantly, I spent a long time discussing with the patient about her general situation. In fact, I had a very sympathetic tone, understanding so well that it must be very difficult for her to be in her situation. At the same time, I explained that there are other people with similar situations that are not taking narcotics on the heavy dose. I have explained to her that despite her efforts most likely will not be able to completely break the addiction just single handedly and it is not just the financial issue and winning a lawsuit. I am trying to help the patient in great detail explaining her gently, kindly with words of kindness. I have explained to the patient, I have given her some reading source material. To try to get her back, I explained to her that we are going to try here while she is here to have a multimodal approach between psychiatry and pain management, but basically she needs to detox from what I can gather, I explained also this is not my field of expertise, I am a urologist and I have explained to her with the urinary symptoms I help her as best as possible, but in my estimation, [facility] to see if there is augmentation available, but more importantly for her detox and it is a whole program. I gave words of encouragement to the patient in terms of success models and role models and that slowly, but surely, we are going to try to wean her at least off some of her medicines while she is here. The patient seems to be fully cooperative and onboard with that idea and so, therefore, I am going to continue to encourage this behavior. It is long note to her chart, but we are going to encourage that, the patient to try to make positive steps in the right direction. We are going to obtain psych consult and pain management. See if we can have social work involvement. Recognizing of course, and I explained this to the patient that it is very difficult, even just unfortunately the situation is difficult, but if she looks within optimistic outlook and hopeful outlook, we can hopefully make some progress. I have explained to the patient that this is not my field of expertise, but I can definitely try to assist her along the way. The plans today is admission to the hospital and observation. For now, we are going to provide the patient with her analgesics, narcotics, fentanyl, etc., and all other medications. She herself what she said is morphine does not touch her and she knows that 4 mg of morphine is basically for her the way she describes it, like I a glass of water, so I explained to the patient that we can slowly, but surely not just withdraw because of receptive and upgrade receptive, etc, but we will slowly with the assistance of other doctors. Perhaps, for example, I have seen patients on methadone, although like. We will need to discuss this. So the plan for now is maintain the suprapubic catheter, try to get social service agency director involved and see if we can get multimodality approach and see if she can get through detox . Tom Molina MD [facility] # [id number]
[2017-06-03] MEDS: Morphine 4 MG/ML VIAL IVP PRN (22:43)
--- NOTE | 2017-06-04 01:43 | PN ---
DATE: 05/29/2017 HISTORY: See the previously dictated History and Physical. Cortez catheter is draining well. The patient is without any new complaints. CONSULTS OBTAINED: Psychiatric, pain medicine, etc. PAST MEDICAL HISTORY: No change. PAST SURGICAL HISTORY: No change. PHYSICAL EXAMINATION: No change. DIAGNOSES: 1. Urinary voiding dysfunction. 2. Drug addiction. SUMMARY: We are making progress. I spent a long time again with the patient. Tom Molina MD
[2017-06-04] MEDS: Morphine 4 MG/ML VIAL IVP PRN ×6 (03:59→23:42)
[2017-06-04] MEDS: Levothyroxine 150 MCG TAB PO SCH (06:20)
[2017-06-04 06:46] LABS: BASO % 0.7 % (0.0-2.0); EOS # 0.2 K/uL (0.0-0.7); EOS % 3.6 % (0.0-4.0); HEMATOCRIT 32.9 % (34.0-47.0); LYMPH # 1.8 K/uL (1.0-4.3); LYMPH % 31.8 % (20.0-40.0); MEAN CELL VOLUME 85.8 fL (81.0-99.0); MEAN CORPUSCULAR HEMOGLOBIN 27.3 pg (27.0-31.0); MEAN CORPUSCULAR HGB CONC 31.8 g/dL (33.0-37.0); MEAN PLATELET VOLUME 9.2 fL (7.2-11.7); MONO # 0.8 K/uL (0.0-0.8); MONO % 13.6 % (0.0-10.0); NRBC % 0.1 % (0.0-2.0); RED CELL DISTRIBUTION WIDTH 16.1 % (11.5-14.5); WHITE BLOOD COUNT 5.6 K/uL (4.8-10.8)
[2017-06-04 06:54] LABS: ALKALINE PHOSPHATASE 68 U/L (38-126); ALT/SGPT 86 U/L (9-52); AST/SGOT 117 U/L (14-36); BILIRUBIN,TOTAL 0.3 mg/dL (0.2-1.3); BLOOD UREA NITROGEN 13 mg/dL (7-17); CALCIUM 8.5 mg/dl (8.6-10.4); CARBON DIOXIDE 25 mmol/L (22-30); CHLORIDE 103 mmol/L (98-107); GFR AFRICAN-AMERICAN > 60; GLUCOSE,RANDOM 73 mg/dL (65-105); MAGNESIUM 2.2 mg/dL (1.6-2.3); PHOSPHOROUS 3.6 mg/dL (2.5-4.5); POTASSIUM 4.4 mmol/L (3.6-5.2); SODIUM 135 mmol/L (132-148); TOTAL PROTEIN 6.5 g/dL (6.3-8.3)
[2017-06-04 07:02] LABS: ALB/GLOB RATIO 0.8 (1.0-2.1)
[2017-06-04 07:22] LABS: THYROID STIMULATING HORMONE 1.83 mIU/L (0.46-4.68)
--- NOTE | 2017-06-04 08:23 | PCM.URO ---
Urology Progress Note - Objective Lab Results Last 24 Hours: Laboratory Results - last 24 hr 06/04/17 06/04/17 06/04/17 06:29 06:29 06:29 WBC 5.6 RBC 3.84 Hgb 10.5 L Hct 32.9 L MCV 85.8 MCH 27.3 MCHC 31.8 L RDW 16.1 H Plt Count 134 MPV 9.2 Neut % (Auto) 50.3 Lymph % (Auto) 31.8 Labette % (Auto) 13.6 H Eos % (Auto) 3.6 Baso % (Auto) 0.7 Neut # 2.8 Lymph # 1.8 Labette # 0.8 Eos # 0.2 Baso # 0.0 Sodium 135 Potassium 4.4 Chloride 103 Carbon Dioxide 25 Anion Gap 12 BUN 13 Creatinine 0.6 L Est GFR ( Amer) > 60 Est GFR (Non-Af Amer) > 60 Random Glucose 73 Calcium 8.5 L Phosphorus 3.6 Magnesium 2.2 Total Bilirubin 0.3 AST 117 H D ALT 86 H D Alkaline Phosphatase 68 Total Protein 6.5 Albumin 2.8 L Globulin 3.7 Albumin/Globulin Ratio 0.8 L Free T4 0.91 TSH 3rd Generation 1.83 Intake & Output: Intake & Output 06/03/17 06/04/17 06/04/17 18:59 06:59 18:59 Intake Total 400 600 Output Total 800 Balance 400 -200 Intake: Oral 400 600 Output: Urine 800 Suprapubic 800 Vital Signs: Vital Signs - 24 hr 06/03/17 06/04/17 16:00 03:57 Temperature 98.6 F 98.8 F Pulse Rate 81 68 Respiratory 20 20 Rate Blood Pressure 126/72 114/76 O2 Sat by Pulse 99 97 Oximetry
--- NOTE | 2017-06-04 08:33 | PN ---
DATE: 06/03/2017 See mainly previously dictated notes. The patient is awake. She actually just ate breakfast; it is about 06:15 in the morning. I discussed with the patient about changing the catheter. The catheter is in place and draining clear yellow urine. See the plans listed below. The patient states that its been leaking, and that it feels like it might be coming out. On physical exam, it looks to be in good location. I felt the catheter. I asked the patient not to play with the catheter. I explain to her in details as I have done before, that is in place. PAST MEDICAL AND SURGICAL HISTORY: No other changes. See previously dictated notes. PHYSICAL EXAMINATION: Remains unchanged. The abdomen is soft. The catheter is in place. The urine is clear yellow. DIAGNOSES: Voiding dysfunction and incontinence. In summary, this is a very interesting lady. She is a young lady 41-year-old with multiple medical issues and a difficult situation. I explained to her I had multiple text messages with the patient, multiple fun conversations with the patient, multiple in-person conversations with the patient, explaining to her that she is becoming difficult for the staff to assist her. I am interested to help her as best as possible what she needs , also with a little more input. I explained that she wants me to change the catheter, I could do it right now. Early in the morning, the operating room is in fact available, we could do it this morning but why not could be given more anesthesia, just changing her catheter. I explained this in great detail to the patient; her response is somewhat of belligerence. The patient states getting angry with the nurses that they had told me something, but, certainly the nurse and I have no communication. And so, I explained this to the patient in detail; she certainly does not seem to be willing to listen. I explain to the patient in great detail as I have many, many times before that we are all trying to help her as best as possible. I have used words of kindness specifically in gentleness and kindness towards her. Sympathetic for her situation, but at the same time, trying to encourage the patient to make strives forward. I have withdrawn the Valium because the hospital ran out of it, then she asked for it, and I gave her Xanax. We have cut back drastically and we are going to continue currently back on morphine. I have explained to the patient many times, if this does not gel, she is welcome to leave. I have explain though that, in her best interest, we are going to continue; I am going to do my best; I explained that this is not my field of expertise, and e are going to work on getting her to some kind of detox center. And that is not just getting paid from the assistant finance manager check, that is going to solve all her problems. Her own statement is that, she knows that the way she describes 4 mg of morphine is like a drink of water to her, and that she knows is a problem. So, in that regard, we are going to continue monitoring the patient and trying to help her. I also explained to the patient what she said is that the first time before I have even met her, that she has a small capacity bladder and I explained to her that I will not be able to do a suprapubic catheter, so, she should not remove the catheter. If this catheter does fall out, I explained to the patient, then I will place a Cortez catheter and then have her going to an academic center, which has been my recommendations anyway. All this has been explain to the patient in great detail, I have drawn pictures to the patient. I had explained to her in great detail. Further plans will follow. So, the plan for today, I am going to ask Social Work to get involved. I most likely will not bring her back to the operating room and just leave that catheter in, and its draining. The idea of getting it bigger and bigger and bigger that does not automatically set the patient well. Tom Molina MD
--- NOTE | 2017-06-04 09:16 | PN ---
UROLOGY PROGRESS NOTE DATE: 06/02/2017 See the mainly previously dictated notes. I had many conversations with the patient over the weekend. We have withdrawn some of the medications, we stopped the Valium. We put her on Xanax. I spoke to Pain Medicine who feels that again it is not something for them directly, it is more related to getting her to detox center. I explained this also to the patient. The patient states also she has been listening to the videos that is sent to her in reference to her and is optimistic. In anytime though she is very demanding from the nurses, pain medicine on time, etc., with multiple complaints. The catheter, she states now is not draining well. She states it is getting too loose and she wants to go to the operating room to put a bigger catheter in, so she previously had a 24-[place]. See the plan as listed below. PAST MEDICAL AND SURGICAL HISTORY: Otherwise, no changes. PHYSICAL EXAMINATION: No major changes. The suprapubic catheter is certainly in place. The urine is clear. The output is good. DIAGNOSES: Voiding dysfunction, urinary incontinence, paraplegic, drug addiction, and narcotic dependence. I discussed with the patient our findings, recommendations, and plans. Again, I am still working on trying to see if we can get her to a different center. Regarding her urologic care, maybe she can have more surgical procedures and also regarding all medications, she is on fentanyl patch, she is on OxyContin, on morphine, now she is on Xanax instead of Valium. I will also mention that the nursing staff has called me several times, has many, many difficulties. The patient has been put on one-to-one because she was caught stealing from another patient; that patient is pressing charges with the police department, not just the [facility]. The patient has been on one-to-one. She is an extremely difficult patient to work with. I explained to the patient in detail that it is difficult for her to take care of. I am trying my best to help her. So, in this regard, the plan for now is as follows: I explained to the patient if I am going to put a Cortez catheter in, I will put Cortez catheter balloon, that will also keep it dry. I did tell her not to play with her catheter. She is playing with the catheter. I can see that she is pulling it and saying look, it is loose, it is loose. I explained that is in place and if it comes down, I am not able to get another one back into her with her diminished bladder capacity. Then, the only choice will be a suprapubic catheter. I explained this in great detail. It is certainly in place now and it has been draining. I have explained to the patient in great detail that I have an x-ray that shows it is in place, I have a cystoscope with picture that shows it is in place and it has been draining and there is no reason to suspect there to be a problem. So, I told her if possible that we will make arrangements to try to get a bigger catheter and certainly she has a well-formed tract and may be we can get a 22 or 24, which is what she is requesting. She currently has a 20 in, but we are not doing this as an immediate plan. We will consider maybe doing it tomorrow. So, the diagnosis has been as listed above. PLAN: We will consider changing the suprapubic catheter and then make further plans. Tom Molina MD
--- NOTE | 2017-06-04 09:19 | ENDO ---
PROCEDURE DATE: 05/30/2017 See the previously dictated notes from 05/28/2017 and 05/29/2017 and see the operative report. No major changes noted. Consults appreciated. PAST MEDICAL AND SURGICAL: No change. PHYSICAL EXAM: No change. PLAN: As before. Continue multiple model approach, we are trying. The patient says that there is something to do with the superintendent renting managing and she is getting it checked. Then she will be able to go back to [place]. I explained to the patient that it is little further than that. It is not just a financial issue and that we are working on social media assistant to find it. In the interim, the best recommendation for me is a transfer to a detox and then I am trying to see if we can make arrangements. Tom Molina MD
[2017-06-04] MEDS: Multiple Vitamins Tab PO SCH (09:42)
[2017-06-04] MEDS: Venlafaxine 150 mg ER Cap PO SCH (09:44)
[2017-06-04 10:00] VITALS: O2SAT 99
--- NOTE | 2017-06-04 21:08 | CP.PCM.PN ---
<Lino Barrera - Last Filed: 06/04/17 21:05> Subjective - Date & Time of Evaluation Date of Evaluation: 06/04/17 Time of Evaluation: 21:05 - Subjective Subjective: PGY1 Note for Dr. Herrera HPI: Patient seen and examined at bedside. Doing well. Had multiple complaints through out the day saying that her ain was not well controlled but after multiple conversations about why increasing her pain medication was not a good idea she expressed understanding. Objective - Vital Signs/Intake and Output Vital Signs (last 24 hours): Temp Pulse Resp BP Pulse Ox 97.7 F 70 20 107/63 99 06/04/17 09:59 06/04/17 09:59 06/04/17 09:59 06/04/17 09:59 06/04/17 09:59 Intake and Output: 06/04/17 06/05/17 18:59 06:59 Intake Total 480 Output Total 1400 Balance -920 - Medications Medications: Current Medications Acetaminophen (Tylenol 325mg Tab) 650 mg PO DAILY [facility] Last Admin: 06/04/17 09:45 Dose: Not Given Alprazolam (Xanax) 1 mg PO Q8 [facility] Last Admin: 06/04/17 13:51 Dose: 1 mg Ascorbic Acid (Vitamin C 500 Mg Tab) 500 mg PO DAILY [facility] Last Admin: 06/04/17 10:00 Dose: 500 mg Baclofen (Lioresal) 10 mg PO TID [facility] Last Admin: 06/04/17 17:43 Dose: 10 mg Docusate Sodium (Colace) 200 mg PO HS [facility] Last Admin: 06/03/17 21:24 Dose: 200 mg Famotidine (Pepcid) 20 mg PO DAILY [facility] Last Admin: 06/04/17 09:43 Dose: 20 mg Fentanyl (Duragesic) 1 patch TD Q72H [facility] Last Admin: 06/02/17 11:32 Dose: 1 patch Gabapentin (Neurontin) 400 mg PO QID [facility] Last Admin: 06/04/17 17:43 Dose: 400 mg Hydromorphone/Sodium Chloride (Dilaudid Cane Weigher) 6 mg IV Q4H PRN; Protocol PRN Reason: Pain, moderate (4-7) Last Admin: 06/03/17 05:45 Dose: 6 mg Lactulose (Enulose) 20 gm PO TID [facility] Last Admin: 06/04/17 17:43 Dose: 20 gm Levothyroxine Sodium (Synthroid) 150 mcg PO DAILY@0630 [facility] Last Admin: 06/04/17 06:20 Dose: 150 mcg Magnesium Hydroxide (Milk Of Magnesia) 30 ml PO DAILY PRN PRN Reason: Constipation Last Admin: 06/03/17 13:39 Dose: 30 ml Morphine Sulfate (Morphine) 3 mg IVP Q3H PRN PRN Reason: Pain, moderate (4-7) Last Admin: 06/04/17 20:42 Dose: 3 mg Multivitamins (Hexavitamin) 1 tab PO DAILY [facility] Last Admin: 06/04/17 09:42 Dose: 1 tab Mupirocin (Bactroban Ointment) 1 gm TOP BID PRN PRN Reason: Rash Naloxone HCl (Narcan) 0.1 mg IVP Q2M PRN PRN Reason: apnea Nicotine (Nicoderm Cq) 1 patch TD DAILY [facility] Last Admin: 06/04/17 09:43 Dose: 1 patch Oxybutynin Chloride (Ditropan Tab) 5 mg PO TID [facility] Last Admin: 06/04/17 17:43 Dose: 5 mg Pregabalin (Lyrica) 50 mg PO Q12 [facility] Last Admin: 06/04/17 09:42 Dose: 50 mg Rivaroxaban (Xarelto) 10 mg PO DAILY [facility] Last Admin: 06/04/17 09:45 Dose: 10 mg Topiramate (Topamax) 25 mg PO DAILY [facility] Last Admin: 06/04/17 10:00 Dose: 25 mg Venlafaxine HCl (Effexor Xr) 300 mg PO DAILY [facility] Last Admin: 06/04/17 09:44 Dose: 300 mg Zolpidem Tartrate (Ambien) 5 mg PO HS PRN PRN Reason: Insomnia Last Admin: 06/03/17 21:24 Dose: 5 mg - Labs Labs: 06/04/17 06:29 06/04/17 06:29 - Constitutional Appears: Agitated - Head Exam Head Exam: ATRAUMATIC, NORMAL INSPECTION, NORMOCEPHALIC - Eye Exam Eye Exam: EOMI - ENT Exam ENT Exam: Mucous Membranes Moist - Respiratory Exam Respiratory Exam: Clear to Ausculation Bilateral - Cardiovascular Exam Cardiovascular Exam: REGULAR RHYTHM - GI/Abdominal Exam GI & Abdominal Exam: Soft. absent: Distended, Tenderness, Normal Bowel Sounds - Extremities Exam Additional comments: legs contracted bilaterally with intact sensation bilaterally - Neurological Exam Neurological Exam: Alert, Awake, Oriented x3 - Psychiatric Exam Psychiatric exam: Normal Affect, Normal Mood - Skin Skin Exam: Dry, Intact, Normal Color, Warm Assessment and Plan - Assessment and Plan (Free Text) Assessment: Chronic Low Back Pain * Psych (Jcarlos) * Due to pateints recent behavior in the hopsital and addiction, does no feel comfortable prescribing ANY pain meds to the patient. * Medicine team will not prescribe further pain medicine for the patient * Anesthesia (Tanhetal) * Uro (John Paul Molina) * taking care of pain control * Fetanyl 100mcg Q3D * Baclofen 10mg PO TID * Neurontin 400 mg PO QID * Ditropan 5mg po TID * Lyrica 50 mg PO Q12 Hypothyroidism * Synthroid 100 mcg * TSH/T4 - F/U Urinary Incontinence * Uro (John Paul Molina) * Suprapubic catheter in place Rash * Pustular linear rash * Mup Constipation * Colace 200mg PO HS * Lactulose 20 PO TID * Milk of Mag 30 PO QD PRN Tobacco Abuse * Nicotine patch * Bactroban as needed Hx of Phlebitis * Xarelto 10mg PO QD Insomnia * Ambien 5mg PO HS Major depressive disorder, PTSD * Psych (Jcarlos) * see above * Topamax 25 mg PO QD * Effexor Xr 300 mg PO QD PPX * Pepcid 20 PO QD <Nano Herrera V - Last Filed: 06/04/17 21:54> Objective - Vital Signs/Intake and Output Vital Signs (last 24 hours): Temp Pulse Resp BP Pulse Ox 97.7 F 70 20 107/63 99 06/04/17 09:59 06/04/17 09:59 06/04/17 09:59 06/04/17 09:59 06/04/17 09:59 Intake and Output: 06/04/17 06/05/17 18:59 06:59 Intake Total 480 Output Total 1400 Balance -920 - Medications Medications: Current Medications Alprazolam (Xanax) 1 mg PO Q8 [facility] Last Admin: 06/04/17 13:51 Dose: 1 mg Ascorbic Acid (Vitamin C 500 Mg Tab) 500 mg PO DAILY [facility] Last Admin: 06/04/17 10:00 Dose: 500 mg Baclofen (Lioresal) 10 mg PO TID [facility] Last Admin: 06/04/17 17:43 Dose: 10 mg Docusate Sodium (Colace) 200 mg PO HS [facility] Last Admin: 06/03/17 21:24 Dose: 200 mg Famotidine (Pepcid) 20 mg PO DAILY [facility] Last Admin: 06/04/17 09:43 Dose: 20 mg Fentanyl (Duragesic) 1 patch TD Q72H [facility] Last Admin: 06/02/17 11:32 Dose: 1 patch Gabapentin (Neurontin) 400 mg PO QID [facility] Last Admin: 06/04/17 17:43 Dose: 400 mg Hydromorphone/Sodium Chloride (Dilaudid Cane Weigher) 6 mg IV Q4H PRN; Protocol PRN Reason: Pain, moderate (4-7) Last Admin: 06/03/17 05:45 Dose: 6 mg Lactulose (Enulose) 20 gm PO TID [facility] Last Admin: 06/04/17 17:43 Dose: 20 gm Levothyroxine Sodium (Synthroid) 150 mcg PO DAILY@0630 [facility] Last Admin: 06/04/17 06:20 Dose: 150 mcg Magnesium Hydroxide (Milk Of Magnesia) 30 ml PO DAILY PRN PRN Reason: Constipation Last Admin: 06/03/17 13:39 Dose: 30 ml Morphine Sulfate (Morphine) 3 mg IVP Q3H PRN PRN Reason: Pain, moderate (4-7) Last Admin: 06/04/17 20:42 Dose: 3 mg Multivitamins (Hexavitamin) 1 tab PO DAILY [facility] Last Admin: 06/04/17 09:42 Dose: 1 tab Mupirocin (Bactroban Ointment) 1 gm TOP BID PRN PRN Reason: Rash Naloxone HCl (Narcan) 0.1 mg IVP Q2M PRN PRN Reason: apnea Nicotine (Nicoderm Cq) 1 patch TD DAILY [facility] Last Admin: 06/04/17 09:43 Dose: 1 patch Oxybutynin Chloride (Ditropan Tab) 5 mg PO TID [facility] Last Admin: 06/04/17 17:43 Dose: 5 mg Pregabalin (Lyrica) 50 mg PO Q12 [facility] Last Admin: 06/04/17 09:42 Dose: 50 mg Rivaroxaban (Xarelto) 10 mg PO DAILY [facility] Last Admin: 06/04/17 09:45 Dose: 10 mg Topiramate (Topamax) 25 mg PO DAILY [facility] Last Admin: 06/04/17 10:00 Dose: 25 mg Venlafaxine HCl (Effexor Xr) 300 mg PO DAILY [facility] Last Admin: 06/04/17 09:44 Dose: 300 mg Zolpidem Tartrate (Ambien) 5 mg PO HS PRN PRN Reason: Insomnia Last Admin: 06/03/17 21:24 Dose: 5 mg - Labs Labs: 06/04/17 06:29 06/04/17 06:29 Attending/Attestation - Attestation I have personally seen and examined this patient.: Yes I have fully participated in the care of the patient.: Yes I have reviewed all pertinent clinical information, including history, physical exam and plan: Yes Notes (Text): Patient seen during rounds this afternoon. Patient seen, examined, and case discussed with day-time resident. Patient requesting additional pain medications in-spite current therapy. Patient instructed that she will need to been seen by pain management, because she will need to follow-up and have her pain medications adjusted from immediate acting to longer acting. Patient reports she understands and understands this will take time given her extended period of narcotic and benzo dependence over multiple years. Spoke with case management and psych social worker, patient will be able to come back to her rehab place in [place]. I spoke with the patient, her antibiotics for UTI were completed last admission. Patient started on Mupirocin cream over small bumps over chest and base of neck. Assessment/Plan 1) Chronic Low Back Pain * Psych (Jcarlos)--> Due to patients recent behavior in the hospital and addiction , does no feel comfortable prescribing ANY pain meds to the patient-->Medicine team will not prescribe further pain medications-->will need to f/u pain management for other alternatives * Pain Management (Dr. 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 Glaser--> Per note, "She is veryu disatisfied with her pain management despite the high does of narcotics hse is receiving. She claims that at [facility] on top of all her medications she was given SLIP INJECTOR AND APPLICATOR Morphine 4mg. iv pren every 3 hours as needed. I asked her if perhaps we can start with 2mg. iv prn SLIP INJECTOR AND APPLICATOR every 3 hours; she refused Dilaudid.. She will be followedf up very, very closely and carefully observed for any untoward reaction to the newly added narcotic. She swears to the fact that this added SLIP INJECTOR AND APPLICATOR narcotios is very much needed so nadege can spend quiet, relatively pain controlled evening . Apparently she is known to yell and scream and curse the nurses calling them idiots, etc. matthew her pain is overtly unbearable rendering the nights diificult for everybody. i gently explained to this patient why we are so reluctant to be prescribing narcotics and addicting medications as the consensus is that the huge current opiate inappropriate overuse is declared by the Department of Health, Division of consumer affairs as a totally unacceptable doctor caused public hazard, an opiate epidemic in this state." * Last note (Dr. Dr. Glaser 05/24/17): "Vital signs: T 98.6 IN 60/min BP 106/ 60 RR 20min. Patient is fast asleep in bed sitting up, doubled up (paraplegic) , not in any form of distress. When informed that the 1 mg. iv Morphine prn every hour has been discontinued as Valium 5 mg and 4mg. Morphine iv every 4 hours PRN have been ordered, she started yelling and screaming, asking to be discharged!!!. We are all well aware that she is on huge doses of narcotics with the patient herself advising us that she has developed tolerance over time for the pain killers such that bigger and bigger doses of narcotics give satisfactory relief of her acute on chronic pain. Her suprapubic tube was changed on 05/21/2017, a good three days ago. We will continue to monitor her very, very closedly. As sad as the case is we have to follow her wishes and suggestion as how to best deal with her difficulty....The nurse informs us that there is a urine leak periurethrally...and she is scheduled to go back to the OR for solution to the problem on [id number].She is maintained on Amikacin 1 g. once a day ivpb. " 2) Hx of Hypothyroidism * Synthroid 100 mcg * TSH/T4 - F/U 3) Urinary Incontinence * Uro (John Paul Molina) on board * Suprapubic catheter in place; exchanged during admission * Prior hx of ESBL-->wherein Patient was on IV abx; Last admission urine culture on 05/22/17 shows urine culture show no growth. urine culture on this admission is contaminated. * Spoke with patient, she reports she was done with antibiotics in last admission and was not receiving any at [place] 4) Rash * Pustular, small rash over base of neck and anterior chest * Started on Mupricin ointment 5) Constipation * Colace 200mg PO HS * Lactulose 20 PO TID * Milk of Mag 30 PO QD PRN * Likely secondary to narcotic dependence * Reports she had bowel movement 6) Tobacco Abuse * Nicotine patch 7) Hx of Phlebitis * Xarelto 10mg PO QDaily-->per patient-->Patient's mother has plebitis; but unclear if its hertiable or provoked or how long she has actually been on medication 8) Insomnia * Ambien 5mg PO HS 9) Major depressive disorder, PTSD * Psych (Jcarlos) * see above * Topamax 25 mg PO QD * Effexor Xr 300 mg PO QD 10) PPX * Pepcid 20 PO QD * Social work and case managment 11) Disposition: Patient is medically stable for discharge back to [place]. Patient was counselled extensively regarding narcotic dependence, tolerance, and encourage to followup with pain management and addiction medicine specialists to taper her off her current regimen which features short acting, immediate, frequent dosage medications (Benzos and Narcotics) to achieve same effect secondary to tolerance to eventually long acting pain medications
[2017-06-05 01:03] VITALS: TEMP 98.1
[2017-06-05] MEDS: Magnesium Hydroxide Susp 30 ml UD PO PRN (01:28)
[2017-06-05] MEDS: Morphine 4 MG/ML VIAL IVP PRN ×4 (02:42→12:03)
[2017-06-05] MEDS: Levothyroxine 150 MCG TAB PO SCH (05:41)
[2017-06-05 08:12] VITALS: BP 96/62; PULSE 70
[2017-06-05] MEDS: Multiple Vitamins Tab PO SCH (09:01)
[2017-06-05] MEDS: Venlafaxine 150 mg ER Cap PO SCH (09:01)
--- NOTE | 2017-06-05 09:39 | CP.PCM.DIS ---
<Nano Herrera V - Last Filed: 06/05/17 16:56> Provider - Provider Date of Admission: 05/28/17 16:52 Attending physician: Nano Herrera, DO Hospital Course - Lab Results Lab Results: Micro Results 06/04/17 09:03 Urine,Suprapubic Urine Culture - Preliminary Gram Negative Jude Most Recent Lab Values WBC 5.6 K/uL (4.8-10.8) 06/04/17 06:29 RBC 3.84 Mil/uL (3.80-5.20) 06/04/17 06:29 Hgb 10.5 g/dL (11.0-16.0) L 06/04/17 06:29 Hct 32.9 % (34.0-47.0) L 06/04/17 06:29 MCV 85.8 fL (81.0-99.0) 06/04/17 06:29 MCH 27.3 pg (27.0-31.0) 06/04/17 06:29 MCHC 31.8 g/dL (33.0-37.0) L 06/04/17 06:29 RDW 16.1 % (11.5-14.5) H 06/04/17 06:29 Plt Count 134 K/uL (130-400) 06/04/17 06:29 MPV 9.2 fL (7.2-11.7) 06/04/17 06:29 Neut % (Auto) 50.3 % (50.0-75.0) 06/04/17 06:29 Lymph % (Auto) 31.8 % (20.0-40.0) 06/04/17 06:29 Coke % (Auto) 13.6 % (0.0-10.0) H 06/04/17 06:29 Eos % (Auto) 3.6 % (0.0-4.0) 06/04/17 06:29 Baso % (Auto) 0.7 % (0.0-2.0) 06/04/17 06:29 Neut # 2.8 K/uL (1.8-7.0) 06/04/17 06:29 Lymph # 1.8 K/uL (1.0-4.3) 06/04/17 06:29 Coke # 0.8 K/uL (0.0-0.8) 06/04/17 06:29 Eos # 0.2 K/uL (0.0-0.7) 06/04/17 06:29 Baso # 0.0 K/uL (0.0-0.2) 06/04/17 06:29 Sodium 135 mmol/L (132-148) 06/04/17 06:29 Potassium 4.4 mmol/L (3.6-5.2) 06/04/17 06:29 Chloride 103 mmol/L (98-107) 06/04/17 06:29 Carbon Dioxide 25 mmol/L (22-30) 06/04/17 06:29 Anion Gap 12 (10-20) 06/04/17 06:29 BUN 13 mg/dL (7-17) 06/04/17 06:29 Creatinine 0.6 MG/DL (0.7-1.2) L 06/04/17 06:29 Est GFR ( Amer) > 60 06/04/17 06:29 Est GFR (Non-Af Amer) > 60 06/04/17 06:29 POC Glucose (mg/dL) 77 mg/dL (65-110) 06/05/17 14:49 Random Glucose 73 mg/dL (65-105) 06/04/17 06:29 Calcium 8.5 mg/dl (8.6-10.4) L 06/04/17 06:29 Phosphorus 3.6 mg/dL (2.5-4.5) 06/04/17 06:29 Magnesium 2.2 mg/dL (1.6-2.3) 06/04/17 06:29 Total Bilirubin 0.3 mg/dL (0.2-1.3) 06/04/17 06:29 AST 117 U/L (14-36) H D 06/04/17 06:29 ALT 86 U/L (9-52) H D 06/04/17 06:29 Alkaline Phosphatase 68 U/L (38-126) 06/04/17 06:29 Total Protein 6.5 g/dL (6.3-8.3) 06/04/17 06:29 Albumin 2.8 g/dL (3.5-5.0) L 06/04/17 06:29 Globulin 3.7 gm/dL (2.2-3.9) 06/04/17 06:29 Albumin/Globulin Ratio 0.8 (1.0-2.1) L 06/04/17 06:29 Free T4 0.91 ng/dL (0.78-2.19) 06/04/17 06:29 TSH 3rd Generation 1.83 mIU/L (0.46-4.68) 06/04/17 06:29 Urine Color Deisy (YELLOW) 05/26/17 08:57 Urine Clarity Hazy (Clear) 05/26/17 08:57 Urine pH 6.0 (5.0-8.0) 05/26/17 08:57 Ur Specific [place] 1.026 (1.003-1.030) 05/26/17 08:57 Urine Protein 2+ mg/dL (NEGATIVE) H 05/26/17 08:57 Urine Glucose (UA) Normal mg/dL (Normal) 05/26/17 08:57 Urine Ketones Negative mg/dL (NEGATIVE) 05/26/17 08:57 Urine Blood 3+ (NEGATIVE) H 05/26/17 08:57 Urine Nitrate Negative (NEGATIVE) 05/26/17 08:57 Urine Bilirubin Negative (NEGATIVE) 05/26/17 08:57 Urine Urobilinogen 4.0 mg/dL (0.2-1.0) H 05/26/17 08:57 Ur Leukocyte Esterase 3+ Elisabet/uL (Negative) H 05/26/17 08:57 Urine WBC (Auto) 121 /hpf (0-5) H 05/26/17 08:57 Urine RBC (Auto) 343 /hpf (0-3) H 05/26/17 08:57 Ur Squamous Epith Cells 15 /hpf (0-5) H 05/26/17 08:57 Urine Bacteria Occ (<OCC) H 05/26/17 08:57 Discharge Plan - Discharge Medications Prescriptions: oxyCODONE [oxyCONTIN Extended Release Tab] 20 mg PO Q12 #10 tabsr - Follow Up Plan Condition: STABLE Disposition: AGAINST MEDICAL ADVICE Instructions: Urinary Tract Infection in Women (DC), How to Care for Your Suprapubic Catheter (DC), Catheter-associated Urinary Tract Infection (DC) Additional Instructions: From a medical standpoint, Patient is stable and clear for discharge back to rehab when bed is available From a urologic standpoint, patient is stable and clear for discharge. Patient is advised to follow up with outpatient pain management to taper off narcotic and Benzo dependence. [facility] was accessed on 06/05/17 and reviewed over the past 2 years. Patient has only had prescription of Lyrica 25 dispense 56 on 10/26/16. And a prior Lyrica 75mg 4 tabs for 2 days filled on 10/21/16 by Juwna Daly. Discussed with case management and social work. Patient cannot receive IV doses of Valium and morphine at rehab. A note was used for using Heroin on admission date 05/26/17. [employer] [facility] database was checked and there were no other prescriptions written Patient reports she will follow up with her mothers neurologist and pain management in [facility] in 3 weeks time Referrals: Sang Molina MD [Staff Provider] - Attending/Attestation - Attestation I have personally seen and examined this patient.: Yes I have fully participated in the care of the patient.: Yes I have reviewed all pertinent clinical information, including history, physical exam and plan: Yes Notes (Text): Patient seen, examined, and case discussed with day-time resident. Patient seen this morning eating breakfast at bedside. Patient at this time was medically stable to be discharge to go back to [facility]. Medication reconciled with the resident and had discussed with urology, patient stable from their standpoint. Patient was initially insistent for separate prescription for Xanax , but she reported her rehab would not honor the medication reconciliation. Discussed with case management and social, who reported this is not the case. No separate script of Xanax provided. Patient is advised to follow up with outpatient pain management to taper off narcotic and Benzo dependence. [place] [facility] was accessed on 06/05/17 and reviewed over the past 2 years. Patient has only had prescription of Lyrica 25 dispense 56 on 10/26/16. And a prior Lyrica 75mg 4 tabs for 2 days filled on 10/21/16 by Juwan Daly. Discussed with case management and social work. Patient cannot receive IV doses of Valium and morphine at rehab. [employer] [facility] database was checked and there were no other prescriptions written for any other prescriptions including Xanax which patient reports she was getting from a neurologist. Patient reports she will follow up with her mothers neurologist and pain management in [facility] in 3 weeks time. However, at 2:43pm, Rapid Response called, I responded with the ENTRY LEVEL TRUCK DRIVER team, patient appeared in deep sleep, vitals were stable. Patient had received Morphine IV and Xanax at 12pm, and had been visited by a friend prior wherein she received 2 cigarette packs (unopened). Patient received in total Narcan 1.4mg, woke up rapidly and immediately asked more pain medication. I advised the patient that what she just experience is adverse sequela of narcotic/deonte abuse which she has been counselled numerous times. Patient in spite of this knowledge reports she still wants her IV narcotic medication. Patient is NOT medically stable for discharge and will not be getting IV pain/benzo medications. I advised primary nurse, nursing forest supervisor, case management, social work, and senior systems administrator, Dr. Stack given this event. Patient reports she wants to leave against medical advice. Patient instructed risks and benefits of leaving prematurely the hospital in light of this event, including respiratory distress and amongst other risks, and reports she understands the risks and wants to leave in spite of this event that happened. I updated the medication reconcilation form: held her Duragesic, Xanax, Topiramate, and put in Oxycodone ER 20mg PO q12. This updated medication list to be sent to [facility] in light of this event. Patient has been instructed numerous times she needs to establish care for pain management, and in light of this event specifically, because though she has chronic low back pain secondary to organic causes-->there needs to be a balance to achieve adequate pain relief with medications which provided longer duration of relief not short acting medication that only causes transient relief, which patient has been explained MULTIPLE times. Assessment/Plan 1) Chronic Low Back Pain * Psych (Jcarlos)--> Due to patients recent behavior in the hospital and addiction , does no feel comfortable prescribing ANY pain meds to the patient-->Medicine team will not prescribe further pain medications-->will need to f/u pain management for other alternatives * Please note ENTRY LEVEL TRUCK DRIVER event on 06/05/17 * Pain Management (Dr. 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 Glaser--> Per note, "She is veryu disatisfied with her pain management despite the high does of narcotics hsnicholas is receiving. She claims that at [facility] on top of all her medications she was given REGIONAL SALES DIRECTOR Morphine 4mg. iv pren every 3 hours as needed. I asked her if perhaps we can start with 2mg. iv prn REGIONAL SALES DIRECTOR every 3 hours; she refused Dilaudid.. She will be followedf up very, very closely and carefully observed for any untoward reaction to the newly added narcotic. She swears to the fact that this added REGIONAL SALES DIRECTOR narcotios is very much needed so nadege can spend quiet, relatively pain controlled evening . Apparently she is known to yell and scream and curse the nurses calling them idiots, etc. matthew her pain is overtly unbearable rendering the nights diificult for everybody. i gently explained to this patient why we are so reluctant to be prescribing narcotics and addicting medications as the consensus is that the huge current opiate inappropriate overuse is declared by the Department of Health, Division of consumer affairs as a totally unacceptable doctor caused public hazard, an opiate epidemic in this state." * Last note (Dr. Dr. Glaser 05/24/17): "Vital signs: T 98.6 CO 60/min BP 106/ 60 RR 20min. Patient is fast asleep in bed sitting up, doubled up (paraplegic) , not in any form of distress. When informed that the 1 mg. iv Morphine prn every hour has been discontinued as Valium 5 mg and 4mg. Morphine iv every 4 hours PRN have been ordered, she started yelling and screaming, asking to be discharged!!!. We are all well aware that she is on huge doses of narcotics with the patient herself advising us that she has developed tolerance over time for the pain killers such that bigger and bigger doses of narcotics give satisfactory relief of her acute on chronic pain. Her suprapubic tube was changed on 05/21/2017, a good three days ago. We will continue to monitor her very, very closedly. As sad as the case is we have to follow her wishes and suggestion as how to best deal with her difficulty....The nurse informs us that there is a urine leak periurethrally...and she is scheduled to go back to the OR for solution to the problem on [id number].She is maintained on Amikacin 1 g. once a day ivpb. " 2) Hx of Hypothyroidism * Synthroid 100 mcg * TSH/T4 - F/U 3) Urinary Incontinence * Uro (John Paul Molina) on board * Suprapubic catheter in place; exchanged during admission * Prior hx of ESBL-->wherein Patient was on IV abx; Last admission urine culture on 05/22/17 shows urine culture show no growth. urine culture on this admission is contaminated. * Spoke with patient, she reports she was done with antibiotics in last admission and was not receiving any at [facility] 4) Rash * Pustular, small rash over base of neck and anterior chest-->almost resolved today * Mupricin ointment 5) Constipation * Colace 200mg PO HS * Lactulose 20 PO TID * Milk of Mag 30 PO QD PRN * Likely secondary to narcotic dependence * Reports she had bowel movement 6) Tobacco Abuse * Nicotine patch 7) Hx of Phlebitis * Xarelto 10mg PO QDaily-->per patient-->Patient's mother has plebitis; but unclear if its hertiable or provoked or how long she has actually been on medication 8) Insomnia * Ambien 5mg PO HS 9) Major depressive disorder, PTSD * Psych (Jcarlos) * see above * stopped Topamax 25 mg PO QD * Effexor Xr 300 mg PO QD 10) PPX * Pepcid 20 PO QD * Social work and case managment 11) Disposition: Patient is not medically stable for discharge today in light of ENTRY LEVEL TRUCK DRIVER. Patient wants to leave in spite of the event today. Patient request to AMA; against medical advice, risks and benefits described in detail to the patient, and reports understanding and left. <Lino Barrera - Last Filed: 06/05/17 18:30> Provider - Provider Date of Admission: 05/28/17 16:52 Attending physician: Nano Herrera DO Primary care physician: none Consults: Uro: John Paul Molina Psych: Jcarlos Anesthesia: Digna Time Spent in preparation of Discharge (in minutes): 45 Diagnosis - Discharge Diagnosis (1) Drug addiction Status: Chronic Priority: High Comment: Patient with chronic opioid addiction. Fetanyl, Morphine, Oxycontin. as well as other medications being over used (Xanax, Valium). Anesthesia was consulted for Pain Managment. Dr. Garber refused to give the patient pain managment due to her behavior. Dr. John Paul Molina took over pain managment from that point forward (2) Back pain Status: Chronic Priority: Low Comment: 2/2 history of back surgery for MRSA Bacteremia Hospital Course - Lab Results Lab Results: Most Recent Lab Values WBC 5.6 K/uL (4.8-10.8) 06/04/17 06:29 RBC 3.84 Mil/uL (3.80-5.20) 06/04/17 06:29 Hgb 10.5 g/dL (11.0-16.0) L 06/04/17 06:29 Hct 32.9 % (34.0-47.0) L 06/04/17 06:29 MCV 85.8 fL (81.0-99.0) 06/04/17 06:29 MCH 27.3 pg (27.0-31.0) 06/04/17 06:29 MCHC 31.8 g/dL (33.0-37.0) L 06/04/17 06:29 RDW 16.1 % (11.5-14.5) H 06/04/17 06:29 Plt Count 134 K/uL (130-400) 06/04/17 06:29 MPV 9.2 fL (7.2-11.7) 06/04/17 06:29 Neut % (Auto) 50.3 % (50.0-75.0) 06/04/17 06:29 Lymph % (Auto) 31.8 % (20.0-40.0) 06/04/17 06:29 Coke % (Auto) 13.6 % (0.0-10.0) H 06/04/17 06:29 Eos % (Auto) 3.6 % (0.0-4.0) 06/04/17 06:29 Baso % (Auto) 0.7 % (0.0-2.0) 06/04/17 06:29 Neut # 2.8 K/uL (1.8-7.0) 06/04/17 06:29 Lymph # 1.8 K/uL (1.0-4.3) 06/04/17 06:29 Coke # 0.8 K/uL (0.0-0.8) 06/04/17 06:29 Eos # 0.2 K/uL (0.0-0.7) 06/04/17 06:29 Baso # 0.0 K/uL (0.0-0.2) 06/04/17 06:29 Sodium 135 mmol/L (132-148) 06/04/17 06:29 Potassium 4.4 mmol/L (3.6-5.2) 06/04/17 06:29 Chloride 103 mmol/L (98-107) 06/04/17 06:29 Carbon Dioxide 25 mmol/L (22-30) 06/04/17 06:29 Anion Gap 12 (10-20) 06/04/17 06:29 BUN 13 mg/dL (7-17) 06/04/17 06:29 Creatinine 0.6 MG/DL (0.7-1.2) L 06/04/17 06:29 Est GFR ( Amer) > 60 06/04/17 06:29 Est GFR (Non-Af Amer) > 60 06/04/17 06:29 Random Glucose 73 mg/dL (65-105) 06/04/17 06:29 Calcium 8.5 mg/dl (8.6-10.4) L 06/04/17 06:29 Phosphorus 3.6 mg/dL (2.5-4.5) 06/04/17 06:29 Magnesium 2.2 mg/dL (1.6-2.3) 06/04/17 06:29 Total Bilirubin 0.3 mg/dL (0.2-1.3) 06/04/17 06:29 AST 117 U/L (14-36) H D 06/04/17 06:29 ALT 86 U/L (9-52) H D 06/04/17 06:29 Alkaline Phosphatase 68 U/L (38-126) 06/04/17 06:29 Total Protein 6.5 g/dL (6.3-8.3) 06/04/17 06:29 Albumin 2.8 g/dL (3.5-5.0) L 06/04/17 06:29 Globulin 3.7 gm/dL (2.2-3.9) 06/04/17 06:29 Albumin/Globulin Ratio 0.8 (1.0-2.1) L 06/04/17 06:29 Free T4 0.91 ng/dL (0.78-2.19) 06/04/17 06:29 TSH 3rd Generation 1.83 mIU/L (0.46-4.68) 06/04/17 06:29 Urine Color Deisy (YELLOW) 05/26/17 08:57 Urine Clarity Hazy (Clear) 05/26/17 08:57 Urine pH 6.0 (5.0-8.0) 05/26/17 08:57 Ur Specific [place] 1.026 (1.003-1.030) 05/26/17 08:57 Urine Protein 2+ mg/dL (NEGATIVE) H 05/26/17 08:57 Urine Glucose (UA) Normal mg/dL (Normal) 05/26/17 08:57 Urine Ketones Negative mg/dL (NEGATIVE) 05/26/17 08:57 Urine Blood 3+ (NEGATIVE) H 05/26/17 08:57 Urine Nitrate Negative (NEGATIVE) 05/26/17 08:57 Urine Bilirubin Negative (NEGATIVE) 05/26/17 08:57 Urine Urobilinogen 4.0 mg/dL (0.2-1.0) H 05/26/17 08:57 Ur Leukocyte Esterase 3+ Elisabet/uL (Negative) H 05/26/17 08:57 Urine WBC (Auto) 121 /hpf (0-5) H 05/26/17 08:57 Urine RBC (Auto) 343 /hpf (0-3) H 05/26/17 08:57 Ur Squamous Epith Cells 15 /hpf (0-5) H 05/26/17 08:57 Urine Bacteria Occ (<OCC) H 05/26/17 08:57 - Hospital Course Hospital Course: On admission: Patient is a 41 year old female with a PMH of urinary incontinence , bilateral lower extremity paralysis, hypothyroidism presenting to get a superpubic cath changed. She became paralyzed because of a missed diagnosed in 2011 with a bone/blood infection that left her paralyzed in both legs. Patient came here on Friday to have the super pubic cath changed by . She is know complaining that the cath that was placed is to small and falling out. She states that there is blood around the cath, but no noted blood on exam. Patient is also complaining of a rash on shoulders and chest that is puritic. Patient was admitted to have her suprapubic catheter changed. Dr. Nicholas Molina performed the procedure and there were no complications. Patient was seen by Dr. Garber and Anesthesia for management of her chronic pain and opioid use. Dr. Garber did not feel comfortable prescribing any pain medication to the patient. Anesthesia decided to place the patient on a REGIONAL SALES DIRECTOR pump but refused to prescribe her more medicine after that was finished. Dr. Molina took over pain management and prescribed her Morphine. On the day of discharge the patient was found to be apneic and hard to arouse. A rapid response was called and the patient was given Narcan both SC and IV until the patient was more awake. Upon awakening the patient immediately requested more pain medicine. After she was informed we would not give her anymore she requested to leave AMA. The risks of leaving were explained to the patient but she still wanted to leave. This is only a summary of her hospital course. For more complete detail see complete record. - Date & Time of H&P Date of H&P: 06/03/17 Time of H&P: 15:11 Discharge Exam - Head Exam Head Exam: ATRAUMATIC, NORMAL INSPECTION, NORMOCEPHALIC - Eye Exam Eye Exam: EOMI - ENT Exam ENT Exam: Mucous Membranes Moist - Respiratory Exam Additional comments: apneic before rapid - Cardiovascular Exam Cardiovascular Exam: REGULAR RHYTHM - GI/Abdominal Exam GI & Abdominal Exam: Normal Bowel Sounds, Soft. absent: Distended, Tenderness - Extremities Exam Additional comments: b/l lower extremities contracted - Neurological Exam Neurological exam: Alert, Oriented x3 - Psychiatric Exam Psychiatric exam: Agitated - Skin Skin Exam: Dry, Intact, Normal Color, Warm Discharge Plan - Follow Up Plan Patient education suggested?: Yes
[2017-06-05] MEDS ORDERED: Flumazenil 0.1 mg/ml Inj (5ml) IVP STA (14:55)
[2017-06-05] MEDS ORDERED: Naloxone 0.4 mg/ml Inj (Adult) SC ONE (15:01)
[2017-06-05] MEDS ORDERED: Naloxone 0.4 mg/ml Inj (Adult) IVP ONE (15:01)
--- NOTE | 2017-06-16 20:54 | OP ---
DATE OF PROCEDURE: 05/26/2017 PREOPERATIVE DIAGNOSES: Urinary voiding dysfunction, incontinence, diminished bladder capacity, hematuria. POSTOPERATIVE DIAGNOSES: Urinary voiding dysfunction, incontinence, diminished bladder capacity, hematuria. PROCEDURES: KUB, cystoscopy, cystogram, change of a suprapubic cystostomy tube, and insertion of a squaxin-tip Cortez catheter. COMPLICATIONS: There were no complications. ESTIMATED BLOOD LOSS: Less than 10 mL. DRAINS: At the termination of the procedure, we have a well-placed readjusted catheter with an indwelling cystostomy tube. INDICATIONS FOR PROCEDURE: See history and physical and multiple notes. See previous notes also from the previous hospitalization. This patient is a lady who has multiple medical issues. She is narcotic dependent in fact to the point that . The patient was brought to the hospital for admission and she is under my service and my care for management of her multiple medical issues. See the chart notes and the progress notes regarding recommendations, plans, and hopes. In the interim, the patient reports that since the time of her last change of cystostomy tube, she is having urinary incontinence. She reports that with her previous catheter, she also had trouble prior to meeting me. We have discussed the options in this regard. However, today, we brought her back here because she was not able to tolerate any procedures without anesthesia for change of the cystostomy tube. I explained in detail our options and outlined, but with an effort to assist the patient to move forward, we brought her here today. We will provide some anesthesia and change her cystostomy tube. OPERATIVE FINDINGS: The cystostomy tube that was left before is in proper location. We readjusted it and brought it back as close to the anterior wall as possible and still be in place with balloon in place under direct cystoscopic vision. See the operative report. DESCRIPTION OF PROCEDURE: After obtaining informed consent, the patient was brought to the OR and placed on the table. Routine monitors were placed. Time-out was called. The patient was already on antibiotics. The patient was provided anesthesia to so to speak help break the spasm so we were able to place the patient in a modified lithotomy. We actually were able to place her in a modified lithotomy just so that we keep gaining access with the cystoscope, so we would be able to view the balloon and the catheter at the same time. The medical clerk film was performed. KUB was done confirming the position of the tube. I changed the cystostomy tube with a wire using a squaxin tip. Once we did this, we were able to perform the cystoscopic evaluation to confirm the position and adjusted it accordingly with the scope in place so I could directly see the positioning so that the balloon bladder and my concern was that if it was too forward, the tip would stick out of the meatus causing some of the incontinence even if that was collecting most of the urine. There was no evidence of that symptom before even adjusting. The old catheter was not beyond the meatus at all, that was within the urinary bladder. So, under cystoscopic evaluation, we evaluated the bladder. There was abnormal erythema from the catheter. No polyp, no lesion seen. The bladder was otherwise unremarkable. Cystogram was performed as one of the diagnostic studies as mentioned above. Overall, the patient tolerated the procedure well without complication. At the termination of the procedure, we left an indwelling catheter (indwelling squaxin tip). I do want to mention the patient requested though insertion of Cortez catheter via the urethra. Overall, the patient tolerated well and was brought to the recovery room in stable condition. Tom Molina MD
== END 2017-06-05 15:45 | disposition left against medical advice (07) | DRG 820 ==
LOC: C.ER 07:56 → C.SDS 09:52 → C.9P 17:55 → C.5T 22:59 → OBSVTOIN 05-28 16:52 → C.3T 05-31 20:52
PROVIDERS: ADMIT Urology; ATTEND Hospitalist
PROC: BT04YZZ Plain Radiography of Kidneys, Ureters and Bladder using Other Contrast (ICD-10-PCS; 2017-05-26)
PROC: BT00YZZ Plain Radiography of Bladder using Other Contrast (ICD-10-PCS; 2017-05-26)
PROC: 0T2BX0Z Change Drainage Device in Bladder, External Approach (ICD-10-PCS; principal; 2017-05-26 15:00)
DX: T83.511A Infection and inflammatory reaction due to indwelling urethral catheter, initial encounter (principal); R06.81 Apnea, not elsewhere classified; G82.20 Paraplegia, unspecified; F11.20 Opioid dependence, uncomplicated; M86.9 Osteomyelitis, unspecified; R32 Unspecified urinary incontinence; N39.0 Urinary tract infection, site not specified; I80.9 Phlebitis and thrombophlebitis of unspecified site; E03.9 Hypothyroidism, unspecified; G89.29 Other chronic pain; M54.9 Dorsalgia, unspecified; F32.9 Major depressive disorder, single episode, unspecified; R21 Rash and other nonspecific skin eruption; K59.00 Constipation, unspecified; G47.00 Insomnia, unspecified; F43.10 Post-traumatic stress disorder, unspecified; F17.210 Nicotine dependence, cigarettes, uncomplicated; R31.9 Hematuria, unspecified